=== PATIENT | female | born 1950 | race Caucasian/White ===

== ENCOUNTER → 2018-04-10 | Outpatient (CLI) | payer MEDICARE ==
[~2018-04-10] MED LIST: ASPI-715 PO; ATOR-1 PO; CLOP75TA PO; FEXO1TAB39 PO; LISI-357 PO; METF-411 PO; PNEU0.5D3 IM; SIMV5TAB56 PO
[2018-04-10 15:38] LABS: PLATELET COUNT, AUTOMATED 250 K/uL (150-450)
[2018-04-10 16:23] LABS: LDL CHOLESTEROL 96 mg/dl
== END ==
LOC: LAB 15:15
PROVIDERS: ATTEND Internal Medicine
DX: Z00.00 Encounter for general adult medical examination without abnormal findings (principal); I63.9 Cerebral infarction, unspecified; E11.9 Type 2 diabetes mellitus without complications; I10 Essential (primary) hypertension; E78.5 Hyperlipidemia, unspecified; I67.1 Cerebral aneurysm, nonruptured
CPT/HCPCS: 36415; 81001; 82040; 82043; 82247; 82310; 82374; 82435; 82465; 82565; 82947; 83036; 83718; 84075; 84132; 84155; 84295; 84443; 84450; 84460; 84478; 84520; 85025

== ENCOUNTER → 2018-04-19 | Outpatient (CLI) | payer MEDICARE ==
--- NOTE | 2018-04-19 16:16 | RADIOLOGY IMAGING REPORT ---
FACILITY: PATIENT NAME: Jennifer Kirk : 1950 MR: [id number] V: [id number] EXAM DATE: ORDERING PHYSICIAN: ANDREW DOOLEY TECHNOLOGIST: Location: [facility] - [place] Patient: Jennifer Kirk : 1950 Visit/Account:[id number] Date of Sevice: 04/19/2018 THYROID HISTORY: Thyroid nodules. COMPARISON: CTA of the neck dated 04/20/2017. FINDINGS: SIZE: Normal. Right lobe: 4.6 x 2.6 x 1.6 cm Left lobe: 4.5 x 1.3 x 1.5 cm Isthmus: 3 mm Thyroid heterogeneity: Diffusely heterogeneous. NODULES: Right lobe: * 3 spongiform nodules measuring up to 1.7 x 1.2 x 1.6 cm. Left lobe: * Spongiform nodule measuring 1.8 x 0.9 x 1.9 cm. Isthmus: * No discrete nodules. VASCULARITY: Within normal limits. ADDITIONAL FINDINGS: None. IMPRESSION: Bilateral spongiform nodules measuring less than 2 cm. Biopsy is not recommended. Follow-up thyroid u ltrasound in one year is recommended. REFERENCE: 2015 [place] [employer] Management Guidelines for Adult Patients with Thyroid Nodules and D ifferentiated Thyroid Cancer: The [place] [employer] Guidelines Task Force on Thyroid Nodul es and Differentiated Thyroid Cancer. SONOGRAPHIC PATTERNS: * Benign: Purely cystic nodules (no solid component); estimated risk of malignancy <1 percent; no bi opsy recommended. * Very Low Suspicion: Spongiform or partially cystic nodules without any of the sonographic features described in low, intermediate, or high suspicion patterns; estimated risk of malignancy <3 percent; consider FNA at > 2 cm (Observation without FNA is also a reasonable option). * Low Suspicion: Isoechoic or hyperechoic solid nodule, or partially cystic nodule with eccentric so lid areas, without microcalcification, irregular margin or ETE (extra-thyroidal extension), or taller than wide shape; estimated risk of malignancy 5-10 percent; recommend FNA at >1.5 cm. * Intermediate Suspicion: Hypoechoic solid nodule with smooth margins without microcalcifications, E TE (extra-thyroidal extension), or taller than wide shape; estimated risk of malignancy 10-20 percent ; recommend FNA at > 1 cm. * High Suspicion: Solid hypoechoic nodule or solid hypoechoic component of a partially cystic nodule with one or more of the following features: irregular margins (infiltrative, microlobulated), microc alcifications, taller than wide shape, rim calcifications with small extrusive soft tissue component, evidence of ETE (extra-thyroidal extension); estimated risk of malignancy >70-90 percent; recommend FNA at > 1 cm. NOTES: * Although a sonographically suspicious subcentimeter thyroid nodule without evidence of extrathyroi amandeep extension or sonographically suspicious lymph nodes may be observed with close sonographic follow -up rather than pursuing immediate FNA, patient age and preference may modify decision-making. * A > 50% interval increase in nodule volume and/or development of new suspicious sonographic featur es are felt to be a valid reasons for potential re-aspiration of a nodule previously shown to have be nign FNA cytology. Report Dictated By: Darvin Jernigan MD at 04/19/2018 4:01 PM Report E-Signed By: Darvin Jernigan MD at 04/19/2018 4:11 PM WSN:[id number]
== END ==
LOC: US 02:27
PROVIDERS: ATTEND Internal Medicine
DX: E04.1 Nontoxic single thyroid nodule (principal)
CPT/HCPCS: 76536

== ENCOUNTER 2018-05-17 12:41 | Observation (INO) | payer MEDICARE ==
[~2018-05-17] VITALS: Ht 162.6 cm; Wt 85.7 kg
--- NOTE | 2018-05-17 13:00 | EKG ---
FACILITY: [facility] PATIENT NAME: SEEMA GRANADOS : [id number] MR: [id number] V: [id number] EXAM DATE: ORDERING PHYSICIAN: GEE SCHMID TECHNOLOGIST: Test Reason : STROKE Blood Pressure : / mmHG Vent. Rate : 094 BPM Atrial Rate : 094 BPM P-R Int : 194 ms QRS Dur : 094 ms QT Int : 372 ms P-R-T Axes : 034 117 035 degrees QTc Int : 465 ms Normal sinus rhythm Possible Left atrial enlargement Inferior infarct (cited on or before 17-MAY-2018) Anterolateral infarct (cited on or before 17-MAY-2018) Abnormal ECG When compared with ECG of 20-APR-2017 13:45, No significant change was found Confirmed by JOSE LEE ([id number]) on 05/17/2018 3:20:46 PM Referred By: Confirmed By:JOSE LEE
[2018-05-17 13:02] LABS: PLATELET COUNT, AUTOMATED 309 K/uL (150-450)
[2018-05-17 13:11] LABS: INR 0.89
--- NOTE | 2018-05-17 13:17 | RADIOLOGY IMAGING REPORT ---
FACILITY: [facility] PATIENT NAME: Jennifer Kirk : 1950 MR: [id number] V: [id number] EXAM DATE: ORDERING PHYSICIAN: GEE SCHMID TECHNOLOGIST: Location: [facility] - [place] Patient: Jennifer Kirk : 1950 Visit/Account:[id number] Date of Sevice: 05/17/2018 HEAD W/O CONTRAST Provided history: stroke Additional pertinent history: none TECHNIQUE: Imaging was obtained from the skull base through the vertex without intravenous contrast. Source images were reformatted in the coronal sagittal planes. One of the following dose optimization techniques was utilized in the performance of this exam: Autom ated exposure control; adjustment of the mA and/or kV according to the patient's size; or use of an i terative reconstruction technique. Specific details can be referenced in the facility's radiology CT exam operational policy. Additional imaging: none COMPARISON STUDIES: CT 04/20/17 FINDINGS: Brain volume: Normal Acute cortical ischemia: None Chronic cortical and ganglionic ischemia: There is encephalomalacia in the mid and upper posterior right temporal lobe and lower parietal lobe in the posterior MCA distribution representing old ischem ia, similar to prior examination. Another small focus of posterior left MCA distribution ischemia is also stable. Hemorrhage: None Masses / edema: None White matter: There are scattered white matter hypodensities, non-specific in morphology and distrib ution that are within normal limits for age. Vessels: Normal Extra-axial: None significant Calvarium / scalp: Negative Skull base: negative Visualized sinuses / orbits: negative IMPRESSION: Stable old ischemic zones bilateral MCA distribution. No evidence of acute ischemia, hemorrhage or i ntracranial mass. Report Dictated By: Yasmany Varma MD at 05/17/2018 1:06 PM Report E-Signed By: Yasmany Varma MD at 05/17/2018 1:13 PM WSN:[id number]
--- NOTE | 2018-05-17 13:31 | ER Report ---
History and Physical Time Seen By MD: 12:50 Hx. of Stated Complaint: GENERAL WEAKNESS AND DIFFICULTY SPEAKING SINCE 1110 HPI/ROS CHIEF COMPLAINT: Weakness, possible stroke HISTORY OF PRESENT ILLNESS: 68-year-old female patient presents to emergency room with complaint of weakness and possible stroke. Patient states that she was out checking on the tires on a wheelbarrow which are flat. She states that her walked off to do so feels. She states that she turned to walk away and then froze. States she is unable to move at all. Patient states that her returned and was able to help her to a chair decided it was time to come in and be evaluated. I did stop off at the fire department in the town where they live, [place], and EMS was contacted. Patient states that she has numbness to bilateral feet, weakness to her hands. Patient denies any chest pain, nausea, vomiting or diarrhea. Patient has not taken any medications today. Patient is on Plavix as well as aspirin every day. She is also on a statin for high cholesterol. REVIEW OF SYSTEMS: Respiratory: No cough, no dyspnea. Cardiovascular: No chest pain, no palpitations. Gastrointestinal: No vomiting, no abdominal pain. Musculoskeletal: As noted above Neuro: Patient denies any headache. Allergies: Coded Allergies: Sulfa (Sulfonamide Antibiotics) (Verified Allergy, Mild, 05/10/10) latex (Unverified Allergy, Unknown, Rash, 05/09/17) Uncoded Allergies: TAPE (Allergy, Mild, 05/10/10) Home Meds Active Scripts Clopidogrel Bisulfate (CLOPIDOGREL) 75 Mg Tablet, 1 TAB PO QDAY, #14 TAB Prov:ANDREW DOOLEY MD 05/01/18 Atorvastatin Calcium (ATORVASTATIN CALCIUM) 80 Mg Tablet, 1 TAB PO QDAY, #14 TAB Prov:ANDREW DOOLEY MD 05/01/18 Metformin Hcl (METFORMIN HCL) 500 Mg Tablet, 1 TAB PO BID, #28 TAB Prov:ANDREW DOOLEY MD 05/01/18 Lisinopril (LISINOPRIL) 5 Mg Tablet, 5 MG PO QDAY, #14 TAB Prov:ANDREW DOOLEY MD 05/01/18 Reported Medications Aspirin (Aspirin) 81 Mg Tablet., 81 MG PO DAILY, 0 Refills 05/12/10 Past Medical/Surgical History Patient has a past medical history of TIA, hypertension, CPAP at night, hepatitis, knee fracture, diabetes. Patient has a surgical history of hardware in the right leg, polyp removed. Reviewed Nurses Notes: Yes Smoking Status: Never Smoker Hx Substance Use Disorder: No Hx Alcohol Use: No Constitutional Vital Sign - Last 24 Hours 05/17/18 05/17/18 05/17/18 05/17/18 12:52 13:00 13:15 13:30 Temp 98.7 Pulse 94 89 89 Resp 18 27 20 B/P (MAP) 149/85 134/98 (110) 128/96 (107) 125/76 (92) Pulse Ox 93 94 92 O2 Delivery Room Air 05/17/18 05/17/18 05/17/18 05/17/18 13:50 14:00 14:15 14:30 Pulse 81 77 Resp 9 20 B/P (MAP) 114/68 (83) 113/73 (86) 114/75 (88) 120/64 (82) Pulse Ox 96 94 05/17/18 05/17/18 05/17/18 05/17/18 14:45 15:00 15:15 15:30 Pulse 78 78 Resp 15 15 B/P (MAP) 133/77 (95) 122/79 (93) 111/63 (79) 98/57 (71) Pulse Ox 93 93 05/17/18 05/17/18 15:45 16:00 Pulse 87 Resp 10 B/P (MAP) 110/66 (81) 113/72 (86) Pulse Ox 96 Physical Exam General Appearance: The patient is alert, has no immediate need for airway protection and no current signs of toxicity. Eyes: Pupils equal and round no injection. Extraocular movements intact. Respiratory: Chest is non tender, lungs are clear to auscultation. Cardiac: regular rate and rhythm Gastrointestinal: Abdomen is soft and non tender, no masses, bowel sounds normal. Musculoskeletal: Neck: Neck is supple and non tender. Extremities have full range of motion and are non tender. Patient has weakness to bilateral lower extremities, weakness to arms. Patient is unable to keep her arms up doing the pronator drift bilaterally. Skin: No rashes or lesions. Neuro: Patient is alert and oriented 4, cranial nerves II through XII grossly intact. Patient does have bilateral weakness. Patient had weakness with dorsiflexion and plantar flexion. That did improve while she was being evaluated by neurology. Patient had good sensation bilaterally. DIFFERENTIAL DIAGNOSIS: After history and physical exam differential diagnosis was considered for stroke, TIA, weakness, urinary tract infection. Medical Decision Making Data Points Result Diagram: 05/17/18 1230 05/17/18 1230 Laboratory Hematology Test 05/17/18 12:30 Red Blood Count 4.54 M/uL (4.17-5.56) Mean Corpuscular Volume 86.2 fL (80.0-96.0) Mean Corpuscular Hemoglobin 29.1 pg (26.0-33.0) Mean Corpuscular Hemoglobin Concent 33.8 g/dL (32.0-36.0) Red Cell Distribution Width 15.2 % (11.5-14.5) Mean Platelet Volume 8.9 fL (7.2-11.1) Neutrophils (%) (Auto) 62.9 % (39.4-72.5) Lymphocytes (%) (Auto) 29.8 % (17.6-49.6) Monocytes (%) (Auto) 5.0 % (4.1-12.4) Eosinophils (%) (Auto) 1.8 % (0.4-6.7) Basophils (%) (Auto) 0.5 % (0.3-1.4) Nucleated RBC Relative Count (auto) 0.1 /100WBC Neutrophils # (Auto) 4.2 K/uL (2.0-7.4) Lymphocytes # (Auto) 2.0 K/uL (1.3-3.6) Monocytes # (Auto) 0.3 K/uL (0.3-1.0) Eosinophils # (Auto) 0.1 K/uL (0.0-0.5) Basophils # (Auto) 0.0 K/uL (0.0-0.1) Nucleated RBC Absolute Count (auto) 0.01 K/uL Prothrombin Time 12.1 seconds (12.0-14.4) Prothromb Time International Ratio 0.89 Activated Partial Thromboplast Time 31 seconds (23-35) Sodium Level 141 mmol/L (137-145) Potassium Level 3.9 mmol/L (3.5-5.0) Chloride Level 104 mmol/L (98-107) Carbon Dioxide Level 24 mmol/L (22-31) Blood Urea Nitrogen 17 mg/dl (7-18) Creatinine 0.80 mg/dl (0.52-1.04) Glomerular Filtration Rate Calc > 60.0 Random Glucose 185 mg/dl (75-110) Calcium Level 9.6 mg/dl (8.4-10.2) Total Bilirubin 0.4 mg/dl (0.2-1.3) Aspartate Amino Transf (AST/SGOT) 25 U/L (0-35) Alanine Aminotransferase (ALT/SGPT) 29 U/L (0-56) Alkaline Phosphatase 87 U/L (0-126) Troponin I < 0.012 ng/ml Total Protein 8.0 g/dl (6.3-8.2) Albumin 4.7 g/dl (3.5-5.0) Chemistry Test 05/17/18 12:30 White Blood Count 6.7 k/uL (4.5-11.0) Red Blood Count 4.54 M/uL (4.17-5.56) Hemoglobin 13.2 g/dL (12.0-16.0) Hematocrit 39.1 % (34.0-47.0) Mean Corpuscular Volume 86.2 fL (80.0-96.0) Mean Corpuscular Hemoglobin 29.1 pg (26.0-33.0) Mean Corpuscular Hemoglobin Concent 33.8 g/dL (32.0-36.0) Red Cell Distribution Width 15.2 % (11.5-14.5) Platelet Count 309 K/uL (150-450) Mean Platelet Volume 8.9 fL (7.2-11.1) Neutrophils (%) (Auto) 62.9 % (39.4-72.5) Lymphocytes (%) (Auto) 29.8 % (17.6-49.6) Monocytes (%) (Auto) 5.0 % (4.1-12.4) Eosinophils (%) (Auto) 1.8 % (0.4-6.7) Basophils (%) (Auto) 0.5 % (0.3-1.4) Nucleated RBC Relative Count (auto) 0.1 /100WBC Neutrophils # (Auto) 4.2 K/uL (2.0-7.4) Lymphocytes # (Auto) 2.0 K/uL (1.3-3.6) Monocytes # (Auto) 0.3 K/uL (0.3-1.0) Eosinophils # (Auto) 0.1 K/uL (0.0-0.5) Basophils # (Auto) 0.0 K/uL (0.0-0.1) Nucleated RBC Absolute Count (auto) 0.01 K/uL Prothrombin Time 12.1 seconds (12.0-14.4) Prothromb Time International Ratio 0.89 Activated Partial Thromboplast Time 31 seconds (23-35) Glomerular Filtration Rate Calc > 60.0 Calcium Level 9.6 mg/dl (8.4-10.2) Total Bilirubin 0.4 mg/dl (0.2-1.3) Aspartate Amino Transf (AST/SGOT) 25 U/L (0-35) Alanine Aminotransferase (ALT/SGPT) 29 U/L (0-56) Alkaline Phosphatase 87 U/L (0-126) Troponin I < 0.012 ng/ml Total Protein 8.0 g/dl (6.3-8.2) Albumin 4.7 g/dl (3.5-5.0) Coagulation Test 05/17/18 12:30 Prothrombin Time 12.1 seconds Prothromb Time International Ratio 0.89 Activated Partial Thromboplast Time 31 seconds EKG/Imaging Imaging Single view of the chest Indication: Stroke alert. Comparison: None available Findings: Cardiac silhouette is upper limits of normal, accentuated by the frontal projection. Lungs are clear. There is no focal infiltrate or lobar consolidation. No pneumothorax or pleural effusion. IMPRESSION: 1. No acute cardiopulmonary process. Report Dictated By: Anshul Diamond MD at 05/17/2018 1:42 PM Report E-Signed By: Anshul Diamond MD at 05/17/2018 1:42 PM HEAD W/O CONTRAST Provided history: stroke Additional pertinent history: none TECHNIQUE: Imaging was obtained from the skull base through the vertex without intravenous contrast. Source images were reformatted in the coronal sagittal planes. One of the following dose optimization techniques was utilized in the performance of this exam: Automated exposure control; adjustment of the mA and/or kV according to the patient's size; or use of an iterative reconstruction technique. Specific details can be referenced in the facility's radiology CT exam operational policy. Additional imaging: none COMPARISON STUDIES: CT 04/20/17 FINDINGS: Brain volume: Normal Acute cortical ischemia: None Chronic cortical and ganglionic ischemia: There is encephalomalacia in the mid and upper posterior right temporal lobe and lower parietal lobe in the posterior MCA distribution representing old ischemia, similar to prior examination. Another small focus of posterior left MCA distribution ischemia is also stable. Hemorrhage: None Masses / edema: None White matter: There are scattered white matter hypodensities, non-specific in morphology and distribution that are within normal limits for age. Vessels: Normal Extra-axial: None significant Calvarium / scalp: Negative Skull base: negative Visualized sinuses / orbits: negative IMPRESSION: Stable old ischemic zones bilateral MCA distribution. No evidence of acute ischemia, hemorrhage or intracranial mass. Report Dictated By: Yasmany Varma MD at 05/17/2018 1:06 PM Report E-Signed By: Yasmany Varma MD at 05/17/2018 1:13 PM ED Course/Re-evaluation ED Course Patient was admitted to an exam room, history of physical were obtained. Differential diagnoses were considered. On mission to the emergency room patient was taken for CAT scan. And then was taken in the room. A full neuro exam was done. Patient had weakness to her bilateral lower extremities, as well as her upper extremities. A CBC, CMP, coag studies were done. The lab results were unremarkable. Telestroke was initiated, the patient was evaluated by a neurologist, Dr. Conti. Neurologist did not feel that the patient needed to have TPA at this time. She recommended a CTA of the head and neck. That was done and they found no acute abnormalities. After the CTA patient was feeling better, she had increased strength and movement in her arms and legs. She was talking better. I discussed the findings with her. I then spoke with Dr. Agosto, neurology resident at [facility] in [place], I discussed with him that my plan was to go ahead and have the patient admitted and we would monitor her overnight. He felt that was a reasonable plan. I spoke with Dr. Spivey, hospitalist, who agreed to accept the patient for admission. I discussed this with the patient and her family and they verbalized understanding and agreement with plan. Decision to Disposition Date: May 17, 2018 Decision to Disposition Time: 16:11 Depart Departure Latest Vital Signs Vital Signs Date Time Temp Pulse Resp B/P (MAP) Pulse Ox O2 Delivery O2 Flow Rate FiO2 05/17/18 16:00 87 10 113/72 (86) 96 05/17/18 12:52 98.7 Room Air Impression: Primary Impression: TIA (transient ischemic attack) Condition: Improved Disposition: Admitted from ER Referrals: ANDREW DOOLEY MD (PCP) DOUGIE BOWER May 17, 2018 13:31
[2018-05-17] MEDS ORDERED: NS(*) 0.9% 50 ML BAG 50 ML ONE (13:41)
[2018-05-17] MEDS ORDERED: IOPAMIDOL 76% 75 ML INFUS BTL 75 ML ONE (13:41)
--- NOTE | 2018-05-17 13:47 | RADIOLOGY IMAGING REPORT ---
FACILITY: [facility] PATIENT NAME: Jennifer Kirk : 1950 MR: [id number] V: [id number] EXAM DATE: ORDERING PHYSICIAN: ANSHUL SCHMID TECHNOLOGIST: Location: Patient: Jennifer Kirk : 1950 Visit/Account:[id number] Date of Sevice: 05/17/2018 Single view of the chest Indication: Stroke alert. Comparison: None available Findings: Cardiac silhouette is upper limits of normal, accentuated by the frontal projection. Lungs are clear . There is no focal infiltrate or lobar consolidation. No pneumothorax or pleural effusion. IMPRESSION: 1. No acute cardiopulmonary process. Report Dictated By: Anshul Diamond MD at 05/17/2018 1:42 PM Report E-Signed By: Anshul Diamond MD at 05/17/2018 1:42 PM WSN:[id number]
--- NOTE | 2018-05-17 14:30 | RADIOLOGY IMAGING REPORT ---
FACILITY: [facility] - [place] PATIENT NAME: Jennifer Kirk : 1950 MR: [id number] V: [id number] EXAM DATE: ORDERING PHYSICIAN: DOUGIE BOWER TECHNOLOGIST: Location: [facility] [place] Patient: Jennifer Kirk : 1950 Visit/Account:[id number] Date of Sevice: 05/17/2018 ADDENDUM #1 Addendum: There is an error in the impression. IMPRESSION 1 should read "Unchanged 2.3 mm saccular an eurysm at the right M1 bifurcation." Report content is otherwise unchanged. Dr. Manrique reviewed this change with the patient's care provider. Report Dictated By: Abrahan Archer MD at 05/18/2018 2:16 PM Report E-Signed By: Abrahan Archer MD at 05/18/2018 2:19 PM ORIGINAL REPORT Examination: CTA of the head and neck Comparison: Noncontrast head CT earlier the same day. CTA 04/20/2017. History: weakness Procedure: Arterial phase imaging of the head and neck with 75 mL intravenous Isovue 370. Reconstruct ion of the source data set includes multiplanar 2D in the sagittal and coronal planes, and 3D reconst ructed coronal slab MIP series. Percent stenosis is based on NASCET criteria. One of the following dose optimization techniques was utilized in the performance of this exam: Autom ated exposure control; adjustment of the mA and/or kV according to the patient's size; or use of an i terative reconstruction technique. Specific details can be referenced in the facility's radiology C T exam operational policy. Findings: Aortic arch: Minimal atherosclerosis. Arch vessel origins are widely patent. Right extracranial carotid system: Negative. Left extracranial carotid system: Negative. Vertebral arteries: Negative. Intracranial internal carotid arteries: Minimal atherosclerosis. No occlusion or stenosis. Anterior cerebral arteries: Negative. Anterior communicating artery is present. Middle cerebral arteries: 2.3 mm saccular aneurysm at the right M1 bifurcation is unchanged. No acute findings. Vertebrobasilar system and posterior cerebral arteries: origin left posterior cerebral artery. Otherwise negative. Dural venous sinuses: Limited evaluation of venous sinuses due to the arterial phase of enhancement. Brain: No mass effect or midline shift. More fully characterized on the earlier noncontrast head CT. Cervical spine: No vertebral body height loss or malalignment. Mild to moderate degenerative disc dis ease at C3-C4, C5-C6, and C6-C7. No definite spinal canal narrowing is identified although there is m ild to moderate multilevel foraminal narrowing. Paranasal sinus and orbits: No acute changes. Multiple periapical erosions as before. Bilateral TMJ o steoarthritis. Prevertebral soft tissues: No acute findings. Multinodular thyroid as before. Visualized airway and lung apices: Clear. IMPRESSION: 1. Unchanged 2.3 cm saccular aneurysm at the right M1 bifurcation. 2. No evidence of acute arterial pathology in the head or neck. 3. Cervical spine multilevel degenerative change. 4. Multinodular thyroid is better characterized on the thyroid ultrasound from 04/19/2018. 5. 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 Results were discussed with DOUGIE BOWER at 05/17/2018 2:25 PM. Report Dictated By: Abrahan Archer MD at 05/17/2018 2:08 PM Report E-Signed By: Abrahan Archer MD at 05/17/2018 2:26 PM [id number]
--- NOTE | 2018-05-17 14:31 | RADIOLOGY IMAGING REPORT ---
FACILITY: [facility] - [place] PATIENT NAME: Jennifer Kirk : 1950 MR: [id number] V: [id number] EXAM DATE: ORDERING PHYSICIAN: DOUGIE BOWER TECHNOLOGIST: Location: [facility] [place] Patient: Jennifer Kirk : 1950 Visit/Account:[id number] Date of Sevice: 05/17/2018 ADDENDUM #1 Addendum: There is an error in the impression. IMPRESSION 1 should read "Unchanged 2.3 mm saccular an eurysm at the right M1 bifurcation." Report content is otherwise unchanged. Dr. Manrique reviewed this change with the patient's care provider. Report Dictated By: Abrahan Archer MD at 05/18/2018 2:16 PM Report E-Signed By: Abrahan Archer MD at 05/18/2018 2:19 PM ORIGINAL REPORT Examination: CTA of the head and neck Comparison: Noncontrast head CT earlier the same day. CTA 04/20/2017. History: weakness Procedure: Arterial phase imaging of the head and neck with 75 mL intravenous Isovue 370. Reconstruct ion of the source data set includes multiplanar 2D in the sagittal and coronal planes, and 3D reconst ructed coronal slab MIP series. Percent stenosis is based on NASCET criteria. One of the following dose optimization techniques was utilized in the performance of this exam: Autom ated exposure control; adjustment of the mA and/or kV according to the patient's size; or use of an i terative reconstruction technique. Specific details can be referenced in the facility's radiology C T exam operational policy. Findings: Aortic arch: Minimal atherosclerosis. Arch vessel origins are widely patent. Right extracranial carotid system: Negative. Left extracranial carotid system: Negative. Vertebral arteries: Negative. Intracranial internal carotid arteries: Minimal atherosclerosis. No occlusion or stenosis. Anterior cerebral arteries: Negative. Anterior communicating artery is present. Middle cerebral arteries: 2.3 mm saccular aneurysm at the right M1 bifurcation is unchanged. No acute findings. Vertebrobasilar system and posterior cerebral arteries: origin left posterior cerebral artery. Otherwise negative. Dural venous sinuses: Limited evaluation of venous sinuses due to the arterial phase of enhancement. Brain: No mass effect or midline shift. More fully characterized on the earlier noncontrast head CT. Cervical spine: No vertebral body height loss or malalignment. Mild to moderate degenerative disc dis ease at C3-C4, C5-C6, and C6-C7. No definite spinal canal narrowing is identified although there is m ild to moderate multilevel foraminal narrowing. Paranasal sinus and orbits: No acute changes. Multiple periapical erosions as before. Bilateral TMJ o steoarthritis. Prevertebral soft tissues: No acute findings. Multinodular thyroid as before. Visualized airway and lung apices: Clear. IMPRESSION: 1. Unchanged 2.3 cm saccular aneurysm at the right M1 bifurcation. 2. No evidence of acute arterial pathology in the head or neck. 3. Cervical spine multilevel degenerative change. 4. Multinodular thyroid is better characterized on the thyroid ultrasound from 04/19/2018. 5. 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 Results were discussed with DOUGIE BOWER at 05/17/2018 2:25 PM. Report Dictated By: Abrahan Archer MD at 05/17/2018 2:08 PM Report E-Signed By: Abrahan Archer MD at 05/17/2018 2:26 PM WSN:[id number]
[2018-05-17 17:23] VITALS: BP 119/81
[2018-05-17] MEDS ORDERED: INFLUENZA VIRUS VAC 0.5 ML SYR IM ONLY ONE (17:40)
[2018-05-17] MEDS ORDERED: INSULIN HUM LISPRO 100 UN/ML 3 ML VIAL SUBQ PRN (18:00)
--- NOTE | 2018-05-17 18:10 | History & Physical ---
History of Present Illness Chief Complaint Inability to move History of Present Illness This patient presented to the emergency room complaining of being unable to move any part of her body. The incident occurred this [place] She reports the sudden onset of being unable to snow remover any of her extremities, but she was able to verbally ask her for help. She and her family deny any unilateral involvement. She reports a feeling of numbness across her entire body. The symptoms resolved after several hours when she was in the emergency department. History Problems: (1) TIA (transient ischemic attack) Status: Chronic (2) Benign hypertension (3) Diabetes mellitus (4) Hyperlipidemia (5) Thyroid nodule (6) Saccular aneurysm Status: Chronic Home Meds Active Scripts Clopidogrel Bisulfate (CLOPIDOGREL) 75 Mg Tablet, 1 TAB PO QDAY, #14 TAB Prov:ANDREW DOOLEY MD 05/01/18 Atorvastatin Calcium (ATORVASTATIN CALCIUM) 80 Mg Tablet, 1 TAB PO QDAY, #14 TAB Prov:ANDREW DOOLEY MD 05/01/18 Metformin Hcl (METFORMIN HCL) 500 Mg Tablet, 1 TAB PO BID, #28 TAB Prov:ANDREW DOOLEY MD 05/01/18 Lisinopril (LISINOPRIL) 5 Mg Tablet, 5 MG PO QDAY, #14 TAB Prov:ANDREW DOOLEY MD 05/01/18 Reported Medications Aspirin (Aspirin) 81 Mg Tablet.dr, 81 MG PO DAILY, 0 Refills 05/12/10 Allergies: Coded Allergies: Sulfa (Sulfonamide Antibiotics) (Verified Allergy, Mild, 05/10/10) latex (Unverified Allergy, Unknown, Rash, 05/09/17) Uncoded Allergies: TAPE (Allergy, Mild, 05/10/10) Patient History: FH: pancreatic cancer FATHER, Smoking Status: Never Smoker Hx Alcohol Use: No Hx Substance Use Disorder: No Social Drug Use: Never Review of Systems All Systems Reviewed/Normal: Yes, Except as Noted Neurological: Weakness Exam Vital Signs Vital Signs Date Time Temp Pulse Resp B/P (MAP) Pulse Ox O2 Delivery O2 Flow Rate FiO2 05/17/18 17:42 95 Room Air 05/17/18 17:23 97.8 79 16 119/81 (94) Neuro: No Gross deficits Eyes: PERRLA Cardiovascular: Regular Rate and Rhythm Respiratory: Clear to Auscultation GI: Abd Soft and Non-Tender Extremities: No Edema Integumentary: No Cyanosis Medical Decision Making Data Points Result Diagram: 05/17/18 1230 05/17/18 1230 EKG / Imaging Imaging CT of head and neck reviewed. Assessment and Plan Problems: (1) TIA (transient ischemic attack) Status: Chronic Assessment & Plan: She presented with an inability to move any of her extremities, but her does report that she was able to grab onto the truck with her right hand. Her CT scan shows only an old stroke and unchanged saccular aneurysm. Her symptoms have now completely resolved. The CT angiogram of her head and neck vessels was unremarkable other than the aneurysm. An echocardiogram and therapy evaluations have been ordered. (2) DM2 (diabetes mellitus, type 2) Assessment & Plan: She is on chronic treatment with metformin, which will need to remain on hold secondary to contrast administration. She has been placed on sliding scale level #2. (3) Benign hypertension Assessment & Plan: She is on chronic treatment with lisinopril. Copies to: ANDREW DOOLEY MD ; Venous Thromboembolism Antithrombotics Is Pt On Any Antithrombotics?: No Exam Sepsis Risk: No Definite Risk JOSE LEE DO May 17, 2018 18:10
[2018-05-17 18:41] VITALS: BP 119/60
[2018-05-18 05:36] LABS: PLATELET COUNT, AUTOMATED 265 K/uL (150-450)
[2018-05-18 07:08] VITALS: BP 126/60
[2018-05-18 08:27] VITALS: Ht 162.6 cm; Wt 85.7 kg
[2018-05-18] MEDS ORDERED: ASPIRIN 81 MG ENTERIC COATED PO SCH (09:00)
[2018-05-18] MEDS ORDERED: LISINOPRIL 5 MG TAB PO SCH (09:00)
[2018-05-18] MEDS ORDERED: CLOPIDOGREL BISULFATE 75MG TAB PO SCH (09:00)
[2018-05-18] MEDS ORDERED: ATORVASTATIN 40 MG TAB PO SCH (09:00)
--- NOTE | 2018-05-18 11:10 | Hospitalist Depart ---
Discharge Summary Reason for Hosp/Final Diag: (1) TIA (transient ischemic attack) Status: Chronic Hospital Course & Plan: She presented with an inability to move any of her extremities, but her does report that she was able to grab onto the truck with her right hand. Her CT scan shows only an old stroke and unchanged saccular aneurysm. Her symptoms have now completely resolved. The CT angiogram of her head and neck vessels was unremarkable other than the aneurysm. An echocardiogram was completed pending read. Suspect this more conversion disorder or related than TIA given unusual presentation. (2) DM2 (diabetes mellitus, type 2) Hospital Course & Plan: She is on chronic treatment with metformin. (3) Benign hypertension Hospital Course & Plan: She is on chronic treatment with lisinopril. Departure Weight (Pounds): 189 Result Diagram: 05/18/1852405/18/18524 Condition: Improved Discharge: Home Discharge Instructions Home Meds Active Scripts Clopidogrel Bisulfate (CLOPIDOGREL) 75 Mg Tablet, 1 TAB PO QDAY, #14 TAB Prov:ANDREW DOOLEY MD 05/01/18 Atorvastatin Calcium (ATORVASTATIN CALCIUM) 80 Mg Tablet, 1 TAB PO QDAY, #14 TAB Prov:ANDREW DOOLEY MD 05/01/18 Metformin Hcl (METFORMIN HCL) 500 Mg Tablet, 1 TAB PO BID, #28 TAB Prov:ANDREW DOOLEY MD 05/01/18 Lisinopril (LISINOPRIL) 5 Mg Tablet, 5 MG PO QDAY, #14 TAB Prov:ANDREW DOOLEY MD 05/01/18 Reported Medications Aspirin (Aspirin) 81 Mg Tablet., 81 MG PO DAILY, 0 Refills 05/12/10 Diet: Diabetic Activity: As Tolerated Venous Thromboembolism Antithrombotics Is Pt On Any Antithrombotics?: No CLARISSA LAU DO May 18, 2018 11:10
[2018-05-18] MEDS ORDERED: CLOP75TA PO (14:49)
[2018-05-18] MEDS ORDERED: METF-411 PO (14:49)
[2018-05-18] MEDS ORDERED: LISI5TAB25 PO (14:49)
[2018-05-18] MEDS ORDERED: ATOR-1 PO (14:49)
[2018-05-22] MEDS ORDERED: CLOP75TA PO (15:15)
[2018-05-22] MEDS ORDERED: METF-411 PO (15:15)
[2018-05-22] MEDS ORDERED: ATOR-1 PO (15:15)
[2018-05-22] MEDS ORDERED: LISI5TAB25 PO (15:15)
== END 2018-05-18 11:07 | disposition home or self-care (01) ==
LOC: ER 12:56 → MED 16:13 → INTOOBSV 16:13
PROVIDERS: ADMIT Family Medicine; ATTEND Family Medicine
DX: G45.9 Transient cerebral ischemic attack, unspecified (principal); I10 Essential (primary) hypertension; E11.9 Type 2 diabetes mellitus without complications
CPT/HCPCS: 36415; 36416; 70450; 70496; 70498; 71045; 82948; 84484; 85025; 85610; 85730; 93005; 93306; 99284; A9270; G0378; J7050; Q9967; 82040; 82247; 82310; 82374; 82435; 82565; 82947; 84075; 84132; 84155; 84295; 84450; 84460; 84520

== ENCOUNTER → 2018-05-17 | Outpatient (CLI) | payer MEDICARE ==
[~2018-05-17] MED LIST changes: +LISI5TAB25 PO
[2018-05-18 08:27] VITALS: BMI 32.4
== END ==
LOC: AMB 12:15
PROVIDERS: ATTEND Nurse Practitioner
DX: R53.1 Weakness (principal); R13.0 Aphagia; R29.810 Facial weakness
CPT/HCPCS: A0425; A0427

== ENCOUNTER → 2018-06-16 | Outpatient (CLI) | payer MEDICARE ==
[2018-05-18 08:27] VITALS: BMI 32.4
[~2018-06-16] MED LIST changes: -METF-411 PO; +METF-450 PO
[2018-06-16 10:04] LABS: LDL CHOLESTEROL 75 mg/dl
== END ==
LOC: US 04:22
PROVIDERS: ATTEND Internal Medicine Cardiovascular Disease
DX: I34.0 Nonrheumatic mitral (valve) insufficiency (principal); I35.1 Nonrheumatic aortic (valve) insufficiency
CPT/HCPCS: 36415; 82040; 82247; 82310; 82374; 82435; 82465; 82565; 82947; 83718; 84075; 84132; 84155; 84295; 84450; 84460; 84478; 84520; 85027; 86140; 93017; 93350

== ENCOUNTER 2018-08-09 18:34 | Emergency (ER) | payer MEDICARE ==
[2018-05-18 08:27] VITALS: Wt 85.3 kg
[~2018-08-09 18:34] MED LIST changes: -APIX5TAB PO; -METF-452 PO; -WARF5TAB23 PO
--- NOTE | 2018-08-09 18:42 | ER Report ---
History and Physical Time Seen By MD: 18:37 HPI/ROS CHIEF COMPLAINT: left arm weakness and numbness HISTORY OF PRESENT ILLNESS: This is a 68 year old female. She had sudden onset of left arm numbness and weakness, as well as some numbness and weakness of the left side of her face and aphasia. This was at 1730 hours. 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 Was feeling normal prior, no recent illness. She has no headache, vision changes, but does have a little dizziness. No trouble with speech or swallow at this time. No fevers or chills. No chest pain or shortness of breath. She has had prior CVA in the past and TIAs. The pattern today is different than past TIAs. She takes aspirin, Plavix, lisinopril, atorvastatin, and metformin. No smoking, alcohol, or drug use. REVIEW OF SYSTEMS: Constitutional: No fever or chills. Eyes: No vision changes. ENT: No sore throat. No congestion. Cardiovascular: No chest pain. No palpitations. Respiratory: No cough. No shortness of breath. Gastrointestinal: No abdominal pain. No nausea or vomiting. No constipation or diarrhea. Genitourinary: No dysuria. No frequency Musculoskeletal: No back pain. No extremity pain. Skin: No rashes. No bruising. Neurological: As above. Allergies: Coded Allergies: Sulfa (Sulfonamide Antibiotics) (Verified Allergy, Mild, 05/10/10) latex (Unverified Allergy, Unknown, Rash, 05/09/17) Uncoded Allergies: TAPE (Allergy, Mild, 05/10/10) Home Meds Active Scripts Clopidogrel Bisulfate (CLOPIDOGREL) 75 Mg Tablet, 1 TAB PO QDAY, #90 TAB 3 Refills Prov:ANDREW DOOLEY MD 06/02/18 Atorvastatin Calcium (ATORVASTATIN CALCIUM) 80 Mg Tablet, 1 TAB PO QDAY, #90 TAB 3 Refills Prov:ANDREW DOOLEY MD 06/02/18 Lisinopril (LISINOPRIL) 5 Mg Tablet, 5 MG PO QDAY, #90 TAB 3 Refills Prov:ANDREW DOOLEY MD 06/02/18 Reported Medications Metformin Hcl (METFORMIN HCL) 1,000 Mg Tablet, 1 TAB PO QDAY, TAB 08/09/18 Aspirin (Aspirin) 81 Mg Tablet.dr, 81 MG PO DAILY, 0 Refills 05/12/10 Discontinued Scripts Metformin Hcl (METFORMIN HCL) 500 Mg Tablet, 1 TAB PO DIRECTED, #270 TAB 3 Refills 2 in am and 1 in pm Prov:ANDREW DOOLEY MD 06/02/18 Past Medical/Surgical History See above. Hypertension, nbq-kacqacg-yathhypld diabetes, hypothyroidism, sleep apnea, heart failure Reviewed Nurses Notes: Yes Smoking Status: Never Smoker Hx Substance Use Disorder: No Hx Alcohol Use: No Constitutional Vital Sign - Last 24 Hours 08/09/18 08/09/18 08/09/18 08/09/18 18:45 18:47 19:00 19:04 Temp 97.7 Pulse 105 101 Resp 16 12 B/P (MAP) 144/75 (98) 144/75 149/90 (109) Pulse Ox 96 96 O2 Delivery Room Air 08/09/18 08/09/18 08/09/18 08/09/18 19:34 19:54 20:00 20:04 Pulse 101 99 Resp 23 24 B/P (MAP) 154/82 (106) 144/111 (122) Pulse Ox 93 94 08/09/18 08/09/18 08/09/18 08/09/18 20:15 20:20 20:47 20:50 Pulse 100 99 Resp 31 11 B/P (MAP) 140/91 (107) 138/85 (102) Pulse Ox 92 92 08/09/18 08/09/18 08/09/18 08/09/18 21:00 21:05 21:10 21:15 Pulse 98 104 Resp 16 17 B/P (MAP) 145/79 (101) 136/104 (115) Pulse Ox 95 95 Intake and Output 08/09/18 08/09/18 08/10/18 15:00 23:00 07:00 Intake Total 76.5 ml Balance 76.5 ml Physical Exam General Appearance: The patient is alert. No acute distress. Eyes: Pupils are equal, round. Reactive to light. No pallor, injection or icterus. Extraocular movements are intact. No nystagmus. Normal visual seaman by direct confrontation. ENT: Mucous membranes are moist. Normal oral mucosa. Posterior oropharynx is normal. Normal tympanic membranes and canals. Neck: Supple and non tender. No lymphadenopathy. Respiratory: Lungs are clear to auscultation. Cardiovascular: Regular rate and rhythm. No murmurs, gallops or rubs. Normal capillary refill. No edema. Gastrointestinal: Abdomen is soft and non tender. Nondistended. Normal active bowel sounds. Neurological: Alert and oriented x3. Cranial nerves with eye exam as noted above. Midline tongue, symmetric palate elevation, no facial weakness or numbness. Total paralysis of the left arm, total numbness of the left arm. No other deficits of the extremities. Skin: Warm and dry. No rashes. Musculoskeletal: Extremities are nontender. No tenderness in palpation of the cervical, thoracic and lumbar spine. DIFFERENTIAL DIAGNOSIS: After history and physical exam, differential diagnosis was considered for acute stroke Medical Decision Making Data Points Result Diagram: 08/09/187 08/09/187 Laboratory Hematology Test 08/09/18 18:47 Red Blood Count 4.73 M/uL (4.17-5.56) Mean Corpuscular Volume 86.4 fL (80.0-96.0) Mean Corpuscular Hemoglobin 29.0 pg (26.0-33.0) Mean Corpuscular Hemoglobin Concent 33.6 g/dL (32.0-36.0) Red Cell Distribution Width 15.4 % (11.5-14.5) Mean Platelet Volume 9.1 fL (7.2-11.1) Neutrophils (%) (Auto) 67.4 % (39.4-72.5) Lymphocytes (%) (Auto) 26.0 % (17.6-49.6) Monocytes (%) (Auto) 4.2 % (4.1-12.4) Eosinophils (%) (Auto) 2.0 % (0.4-6.7) Basophils (%) (Auto) 0.4 % (0.3-1.4) Nucleated RBC Relative Count (auto) 0.1 /100WBC Neutrophils # (Auto) 5.9 K/uL (2.0-7.4) Lymphocytes # (Auto) 2.3 K/uL (1.3-3.6) Monocytes # (Auto) 0.4 K/uL (0.3-1.0) Eosinophils # (Auto) 0.2 K/uL (0.0-0.5) Basophils # (Auto) 0.0 K/uL (0.0-0.1) Nucleated RBC Absolute Count (auto) 0.01 K/uL Prothrombin Time 12.1 seconds (12.0-14.4) Prothromb Time International Ratio 0.89 Activated Partial Thromboplast Time 32 seconds (23-35) Sodium Level 141 mmol/L (137-145) Potassium Level 3.7 mmol/L (3.5-5.0) Chloride Level 107 mmol/L (98-107) Carbon Dioxide Level 24 mmol/L (22-31) Blood Urea Nitrogen 20 mg/dl (7-18) Creatinine 0.90 mg/dl (0.52-1.04) Glomerular Filtration Rate Calc > 60.0 Random Glucose 144 mg/dl (75-110) Calcium Level 9.6 mg/dl (8.4-10.2) Total Bilirubin 0.3 mg/dl (0.2-1.3) Aspartate Amino Transf (AST/SGOT) 37 U/L (0-35) Alanine Aminotransferase (ALT/SGPT) 38 U/L (0-56) Alkaline Phosphatase 90 U/L (0-126) Troponin I < 0.012 ng/ml Total Protein 8.1 g/dl (6.3-8.2) Albumin 4.5 g/dl (3.5-5.0) Chemistry Test 08/09/18 18:47 White Blood Count 8.7 k/uL (4.5-11.0) Red Blood Count 4.73 M/uL (4.17-5.56) Hemoglobin 13.7 g/dL (12.0-16.0) Hematocrit 40.8 % (34.0-47.0) Mean Corpuscular Volume 86.4 fL (80.0-96.0) Mean Corpuscular Hemoglobin 29.0 pg (26.0-33.0) Mean Corpuscular Hemoglobin Concent 33.6 g/dL (32.0-36.0) Red Cell Distribution Width 15.4 % (11.5-14.5) Platelet Count 287 K/uL (150-450) Mean Platelet Volume 9.1 fL (7.2-11.1) Neutrophils (%) (Auto) 67.4 % (39.4-72.5) Lymphocytes (%) (Auto) 26.0 % (17.6-49.6) Monocytes (%) (Auto) 4.2 % (4.1-12.4) Eosinophils (%) (Auto) 2.0 % (0.4-6.7) Basophils (%) (Auto) 0.4 % (0.3-1.4) Nucleated RBC Relative Count (auto) 0.1 /100WBC Neutrophils # (Auto) 5.9 K/uL (2.0-7.4) Lymphocytes # (Auto) 2.3 K/uL (1.3-3.6) Monocytes # (Auto) 0.4 K/uL (0.3-1.0) Eosinophils # (Auto) 0.2 K/uL (0.0-0.5) Basophils # (Auto) 0.0 K/uL (0.0-0.1) Nucleated RBC Absolute Count (auto) 0.01 K/uL Prothrombin Time 12.1 seconds (12.0-14.4) Prothromb Time International Ratio 0.89 Activated Partial Thromboplast Time 32 seconds (23-35) Glomerular Filtration Rate Calc > 60.0 Calcium Level 9.6 mg/dl (8.4-10.2) Total Bilirubin 0.3 mg/dl (0.2-1.3) Aspartate Amino Transf (AST/SGOT) 37 U/L (0-35) Alanine Aminotransferase (ALT/SGPT) 38 U/L (0-56) Alkaline Phosphatase 90 U/L (0-126) Troponin I < 0.012 ng/ml Total Protein 8.1 g/dl (6.3-8.2) Albumin 4.5 g/dl (3.5-5.0) Coagulation Test 08/09/18 18:47 Prothrombin Time 12.1 seconds Prothromb Time International Ratio 0.89 Activated Partial Thromboplast Time 32 seconds EKG/Imaging EKG Interpretation 12 lead EKG: Rhythm: Sinus tachycardia with first-degree AV block [place]: normal QRS: Left anterior fascicular block, left atrial enlargement ST segments: No ST elevation or depression noted at this time, no signs of ischemia Imaging EXAMINATION: CT head without IV contrast HISTORY: Possible stroke. Left arm weakness. COMPARISON: CT head and CTA head and neck from 05/17/2018. TECHNIQUE: Contiguous axial images were obtained from the skull base to the vertex without intravenous contrast. Sagittal and coronal reformatted images are also submitted. One of the following dose optimization techniques was utilized in the performance of this exam: Automated exposure control; adjustment of the mA and/or kV according to the patient's size; or use of an iterative reconstruction technique. Specific details can be referenced in the facility's radiology CT exam operational policy. FINDINGS: Brain volume: Mild generalized atrophy with associated concordant prominence of the ventricular system. Ventricles: Normal. Acute ischemic changes: There is no loss of stewart-white differentiation to suggest acute ischemia. Hemorrhage: No acute intracranial hemorrhage. Masses/edema: None. Stewart-white: Small hypodensity in the right cerebellum, small area of gliosis and cortical thinning in the left temporal occipital region and moderate area of encephalomalacia and cortical thinning in the right temporoparietal region are unchanged. White matter: Normal. Vessels: Calcified plaque of both carotid siphons. Extra-axial: Negative. Calvarium/scalp: Mild hyperostosis frontalis interna. Skull base/visualized face: Negative. Visualized sinuses/orbits: Mild mucosal thickening in the bilateral ethmoid air cells. There are bilateral uncomplicated aldair bullosa in the nasal cavity. Mild nasal septal deviation to the left. IMPRESSION: 1. No acute hemorrhage or intracranial mass lesion. No CT evidence of acute infarct. 2. Chronic infarcts in the bilateral MCA distribution, right greater than left, and small chronic right cerebellar infarct, unchanged. These findings were discussed with DENIZ HANEY at 08/09/2018 6:56 PM. Report Dictated By: Heather Manrique MD at 08/09/2018 6:53 PM ED Course/Re-evaluation Clinical Indication for ER IV: Hydration, IV Access ED Course Stroke alert called. Blood sugar normal. Head CT scan, non-contrast, without acute bleed. NIH stroke scale done, score of 5 (3 points for arm total weakness, and 2 points for no sensation in the arm). IV started and labs obtained. Tele- stroke consult with Dr. Conti, neurology at [facility]. After our evaluation, and reviewing risks and benefits of thrombolytics with the patient, the patient gave consent and we gave the thrombolytics. Called and spoke with Dr. Hanson, neurology at [facility] who accepted the patient. No large vessel occlusion s on CTA of the head and neck. Thrombolytics given, mild improvement of numbness, but no change in weakness. No change in vital signs and no signs of adverse effect. She is a little anxious about the transfer, so she was given Ativan 0.5mg IV. Decision to Disposition Date: Aug 09, 2018 Decision to Disposition Time: 20:39 Transfer Facility Patient was transferred to [facility] via helicopter. The transfer was emergent, and was required because the capabilities of the receiving hospital. Consent for transfer was obtained from the patient and her . See EMTALA for transfer orders. Depart Departure Latest Vital Signs Vital Signs Date Time Temp Pulse Resp B/P (MAP) Pulse Ox O2 Delivery O2 Flow Rate FiO2 08/09/18 21:15 136/104 (115) 08/09/18 21:10 104 17 95 08/09/18 18:47 97.7 Room Air Impression: Primary Impression: CVA (cerebral vascular accident) Condition: Condition Unchanged Disposition: XFER TO [facility]UTE [facility]ARE [facility]OSP[facility] Referrals: ANDREW DOOLEY MD (PCP) Problem Qualifiers Primary Impression: CVA (cerebral vascular accident) CVA mechanism: unspecified Qualified Codes: I63.9 - Cerebral infarction, unspecified DENIZ HANEY MD Aug 09, 2018 18:42
[2018-08-09] MEDS ORDERED: METF-452 PO (19:02)
--- NOTE | 2018-08-09 19:03 | RADIOLOGY IMAGING REPORT ---
FACILITY: [facility] PATIENT NAME: Jennifer Kirk : 1950 MR: [id number] V: [id number] EXAM DATE: ORDERING PHYSICIAN: DENIZ HANEY TECHNOLOGIST: Location: [facility] Patient: Jennifer Kirk : 1950 Visit/Account:[id number] Date of Sevice: 08/09/2018 ADDENDUM #1 Addendum: In retrospect there is a mildly hyperdense, partly calcified extra-axial mass in the right posterior fossa, posterior to the internal auditory canal, measuring 1.2 cm in greatest dimension. N o edema in the adjacent brain. 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 Report Dictated By: Heather Manrique MD at 08/09/2018 9:20 PM Report E-Signed By: Heather Manrique MD at 08/09/2018 9:22 PM ORIGINAL REPORT EXAMINATION: CT head without IV contrast HISTORY: Possible stroke. Left arm weakness. COMPARISON: CT head and CTA head and neck from 05/17/2018. TECHNIQUE: Contiguous axial images were obtained from the skull base to the vertex without intraven ous contrast. Sagittal and coronal reformatted images are also submitted. One of the following dose optimization techniques was utilized in the performance of this exam: Autom ated exposure control; adjustment of the mA and/or kV according to the patient's size; or use of an i terative reconstruction technique. Specific details can be referenced in the facility's radiology C T exam operational policy. FINDINGS: Brain volume: Mild generalized atrophy with associated concordant prominence of the ventricular syst em. Ventricles: Normal. Acute ischemic changes: There is no loss of stewart-white differentiation to suggest acute ischemia. Hemorrhage: No acute intracranial hemorrhage. Masses/edema: None. Stewart-white: Small hypodensity in the right cerebellum, small area of gliosis and cortical thinning in the left temporal occipital region and moderate area of encephalomalacia and cortical thinning in th e right temporoparietal region are unchanged. White matter: Normal. Vessels: Calcified plaque of both carotid siphons. Extra-axial: Negative. Calvarium/scalp: Mild hyperostosis frontalis interna. Skull base/visualized face: Negative. Visualized sinuses/orbits: Mild mucosal thickening in the bilateral ethmoid air cells. There are bi lateral uncomplicated aldair bullosa in the nasal cavity. Mild nasal septal deviation to the left. IMPRESSION: 1. No acute hemorrhage or intracranial mass lesion. No CT evidence of acute infarct. 2. Chronic infarcts in the bilateral MCA distribution, right greater than left, and small chronic ri ght cerebellar infarct, unchanged. These findings were discussed with DENIZ HANEY at 08/09/2018 6:56 PM. Report Dictated By: Heather Manrique MD at 08/09/2018 6:53 PM Report E-Signed By: Heather Manrique MD at 08/09/2018 6:59 PM WSN:[id number]
[2018-08-09] MEDS ORDERED: ALTEPLASE RECOMB 100 MG/100 ML VIAL IV ONE (19:50)
[2018-08-09 19:57] LABS: PLATELET COUNT, AUTOMATED 287 K/uL (150-450)
[2018-08-09 20:07] LABS: INR 0.89
[2018-08-09] MEDS ORDERED: IOPAMIDOL 76% 75 ML INFUS BTL 75 ML ONE (20:12)
[2018-08-09] MEDS ORDERED: NS(*) 0.9% 50 ML BAG 50 ML ONE (20:13)
--- NOTE | 2018-08-09 20:14 | EKG ---
FACILITY: [facility] PATIENT NAME: SEEMA GRANADOS : [id number] MR: [id number] V: [id number] EXAM DATE: ORDERING PHYSICIAN: DENIZ HANEY TECHNOLOGIST: WAYNE Test Reason : NEURO Blood Pressure : / mmHG Vent. Rate : 102 BPM Atrial Rate : 102 BPM P-R Int : 218 ms QRS Dur : 094 ms QT Int : 348 ms P-R-T Axes : 048 -49 082 degrees QTc Int : 453 ms Sinus tachycardia with 1st degree AV block with probable intermittent aberrant conduction Probable left atrial enlargement Poor R wave progression anteriorly Nonspecific ST-T findings Abnormal ECG No previous ECGs available Confirmed by JALEN LYN ([id number]) on 08/10/2018 6:00:10 AM Referred By: Confirmed By:JALEN LYN
[2018-08-09] MEDS ORDERED: LORazepam 2 MG/ML VIAL IVP ONE (21:00)
[2018-08-09 21:15] VITALS: BP 136/104
--- NOTE | 2018-08-09 21:23 | RADIOLOGY IMAGING REPORT ---
FACILITY: [facility] PATIENT NAME: Jennifer Kirk : 1950 MR: [id number] V: [id number] EXAM DATE: ORDERING PHYSICIAN: DENIZ HANEY TECHNOLOGIST: Location: [facility] Patient: Jennifer Kirk : 1950 Visit/Account:[id number] Date of Sevice: 08/09/2018 CT angiogram head and neck INDICATION: Left arm weakness. COMPARISON: Same-day head CT, CTA head and neck [facility] 05/17/2018 TECHNIQUE: Axial CT images were obtained through the cerebral and neck vasculature. Multiplanar ref ormatted images were provided. 2-D and 3-D imaging was performed. Evaluation of internal carotid st enosis was performed per NASCET criteria. A total of 75 mL Isovue-370 IV contrast was administered. One of the following dose optimization techniques was utilized in the performance of this exam: Auto mated exposure control; adjustment of the mA and/or kV according to the patient's size; or use of an iterative reconstruction technique. Specific details can be referenced in the facility's radiology CT exam operational policy. FINDINGS: The middle cerebral arteries, anterior cerebral arteries, posterior cerebral arteries as well as the bilateral vertebral arteries and carotid arteries are patent without focal stricture. Unchanged 2.3 mm saccular aneurysm at the right M1 bifurcation. Mild atherosclerosis of the intracranial internal carotid arteries. The visualized aortic arch and great vessels off the aortic arch are unremarkable. Partially calcified 9 mm right posterior fossa meningioma image 40 series 4. Dural venous sinuses are patent. No acute osseous abnormality. Moderate multilevel spondylosis. C3-4 is partially fused. Soft tissu es are nonacute. Multinodular thyroid as previously described. Lung apices are clear. IMPRESSION: 1. No acute abnormality of the neck and cerebral vasculature. 2. Unchanged 2.3 mm saccular aneurysm at the right M1 bifurcation. Report Dictated By: Mingo Carlos MD at 08/09/2018 9:05 PM Report E-Signed By: Mingo Carlos MD at 08/09/2018 9:19 PM WSN:[id number]
--- NOTE | 2018-08-09 21:23 | RADIOLOGY IMAGING REPORT ---
FACILITY: [facility] [place] PATIENT NAME: Jennifer Kirk : 1950 MR: [id number] V: [id number] EXAM DATE: ORDERING PHYSICIAN: DENIZ HANEY TECHNOLOGIST: Location: [facility] [place] Patient: Jennifer Kirk : 1950 Visit/Account:[id number] Date of Sevice: 08/09/2018 CT angiogram head and neck INDICATION: Left arm weakness. COMPARISON: Same-day head CT, CTA head and neck [facility] 05/17/2018 TECHNIQUE: Axial CT images were obtained through the cerebral and neck vasculature. Multiplanar ref ormatted images were provided. 2-D and 3-D imaging was performed. Evaluation of internal carotid st enosis was performed per NASCET criteria. A total of 75 mL Isovue-370 IV contrast was administered. One of the following dose optimization techniques was utilized in the performance of this exam: Auto mated exposure control; adjustment of the mA and/or kV according to the patient's size; or use of an iterative reconstruction technique. Specific details can be referenced in the facility's radiology CT exam operational policy. FINDINGS: The middle cerebral arteries, anterior cerebral arteries, posterior cerebral arteries as well as the bilateral vertebral arteries and carotid arteries are patent without focal stricture. Unchanged 2.3 mm saccular aneurysm at the right M1 bifurcation. Mild atherosclerosis of the intracranial internal carotid arteries. The visualized aortic arch and great vessels off the aortic arch are unremarkable. Partially calcified 9 mm right posterior fossa meningioma image 40 series 4. Dural venous sinuses are patent. No acute osseous abnormality. Moderate multilevel spondylosis. C3-4 is partially fused. Soft tissu es are nonacute. Multinodular thyroid as previously described. Lung apices are clear. IMPRESSION: 1. No acute abnormality of the neck and cerebral vasculature. 2. Unchanged 2.3 mm saccular aneurysm at the right M1 bifurcation. Report Dictated By: Mingo Carlos MD at 08/09/2018 9:05 PM Report E-Signed By: Mingo Carlos MD at 08/09/2018 9:19 PM WSN:[id number]
--- NOTE | 2018-08-09 21:23 | RADIOLOGY IMAGING REPORT ---
[place] [facility]: [place] Kirk : 1950 MR: [id number] V: [id number] EXAM DATE: ORDERING PHYSICIAN: DENIZ HANEY TECHNOLOGIST: Location: [facility] [place] Patient: Jennifer Kirk : 1950 Visit/Account:[id number] Date of Sevice: 08/09/2018 AP CHEST 08/09/2018 7:40 PM. INDICATION: left arm weakness COMPARISON: 05/17/2018. FINDINGS: Lungs are well-expanded. There is no consolidation. No pleural effusion or pneumothorax. Heart size i s normal. IMPRESSION: No acute abnormality. Report Dictated By: Mingo Carlos MD at 08/09/2018 9:19 PM Report E-Signed By: Mingo Carlos MD at 08/09/2018 9:20 PM WSN:[id number]
== END 2018-08-09 21:45 | disposition short-term general hospital (02) ==
LOC: ER 19:05
DX: I63.9 Cerebral infarction, unspecified (principal)
CPT/HCPCS: 84484; 85025; 85610; 85730; 93005; 96374; 96375; 99285; J2060; J2997; J7050; Q9967; 70450; 70496; 70498; 71045; 82040; 82247; 82310; 82374; 82435; 82565; 82947; 84075; 84132; 84155; 84295; 84450; 84460; 84520

== ENCOUNTER → 2018-08-09 | Outpatient (REF) ==
[2018-05-18 08:27] VITALS: BMI 32.4
[~2018-08-09] MED LIST changes: +APIX5TAB PO; +METF-452 PO; +WARF5TAB23 PO
== END ==
LOC: AMB 20:58
PROVIDERS: ATTEND Nurse Practitioner
DX: Z76.89 Persons encountering health services in other specified circumstances (principal)

== ENCOUNTER → 2018-09-04 | Outpatient (CLI) | payer MEDICARE ==
[2018-05-18 08:27] VITALS: BMI 32.4
[~2018-09-04] MED LIST changes: +APIX5TAB PO; +METF-452 PO; +WARF5TAB23 PO
[2018-09-04 14:43] LABS: INR 1.56
== END ==
LOC: LAB 13:56
PROVIDERS: ATTEND Internal Medicine
DX: G54.9 Nerve root and plexus disorder, unspecified (principal); I63.9 Cerebral infarction, unspecified; Z79.01 Long term (current) use of anticoagulants
CPT/HCPCS: 36415; 85610

== ENCOUNTER → 2018-09-15 | Outpatient (CLI) | payer MEDICARE ==
[2018-05-18 08:27] VITALS: BMI 32.4
[2018-09-15 11:13] LABS: INR 2.39
== END ==
LOC: LAB 10:36
PROVIDERS: ATTEND Internal Medicine
DX: Z79.01 Long term (current) use of anticoagulants (principal)
CPT/HCPCS: 36415; 85610

== ENCOUNTER 2018-09-21 07:03 | Outpatient (RCR) | payer MEDICARE ==
[2018-05-18 08:27] VITALS: BMI 32.4
[2018-09-20 14:11] LABS: PLATELET COUNT, AUTOMATED 285 K/uL (150-450)
[2018-09-20 14:23] LABS: INR 2.96
--- NOTE | 2018-09-21 13:55 | RADIOLOGY IMAGING REPORT ---
FACILITY: [facility] PATIENT NAME: Jennifer Kirk : 1950 MR: [id number] V: [id number] EXAM DATE: ORDERING PHYSICIAN: ANDREW DOOLEY TECHNOLOGIST: Location: [facility] [place] Patient: Jennifer Kirk : 1950 Visit/Account:[id number] Date of Sevice: 09/21/2018 ABDOMEN W/O CONTRAST HISTORY: Hematuria, abdominal pain, vomiting TECHNIQUE: CT abdomen without intravenous contrast. Contiguous helical images was performed from the lung bases to the iliac crests. One of the following dose optimization techniques was utilized in the performance of this exam: Autom ated exposure control; adjustment of the mA and/or kV according to the patient's size; or use of an i terative reconstruction technique. Specific details can be referenced in the facility's radiology C T exam operational policy. CONTRAST: None. COMPARISON: None. FINDINGS: Visualized lung bases: Negative. Hepatobiliary: There is a hypodense lesion in segment 2 of liver measuring 2 x 2.2 cm image 31. Thi s lesion may represent a hemangioma but I would suggest a liver MRI to exclude malignancy. Spleen: Negative. Adrenals: Negative. Kidneys/Visualized : No visible radiopaque renal or ureteral stones. No evidence for hydronephros is. The right kidney may have at least partially duplicated collecting system. Pancreas: Negative. Visualized GI: There is diverticulosis of the visualized descending colon Vessels/spaces/nodes: Atherosclerotic calcification is noted. 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 Bones/soft tissues: Degenerative changes are noted. IMPRESSION: 1. No visualized renal or ureteral stones. No evidence for hydronephrosis of either kidney. 2. Indeterminate 2 x 2.2 cm lesion segment 2 of the liver. Recommend a liver MRI with and without c ontrast to exclude malignancy. Report Dictated By: Damien Garcia MD at 09/21/2018 1:43 PM Report E-Signed By: Damien Garcia MD at 09/21/2018 1:50 PM WSN:[id number]
[2018-09-21] MEDS ORDERED: ONDA4TAB97 PO (19:34)
[2018-09-21] MEDS ORDERED: TRAM-420 PO (19:34)
[2018-10-09] MEDS ORDERED: METF-452 PO (12:45)
== END 2018-09-21 18:00 | disposition home or self-care (01) ==
LOC: CT 07:03 → EDSTATUS 07:03 → CT 18:00
PROVIDERS: ATTEND Internal Medicine
DX: R10.9 Unspecified abdominal pain (principal); R31.9 Hematuria, unspecified
CPT/HCPCS: 36415; 74150; 81001; 82040; 82247; 82310; 82374; 82435; 82565; 82947; 84075; 84132; 84155; 84295; 84450; 84460; 84520; 85025; 85610; 87088

== ENCOUNTER 2018-09-21 18:51 | Emergency (ER) | payer MEDICARE ==
[2018-05-18 08:27] VITALS: Wt 83.9 kg
--- NOTE | 2018-09-21 18:57 | ER Report ---
History and Physical Time Seen By MD: 18:57 HPI/ROS CHIEF COMPLAINT: Abdominal pain, vomiting HISTORY OF PRESENT ILLNESS: 68-year-old female presents ambulatory to the ER complaining of abdominal pain and vomiting. She notes several weeks of a bdominal pain. She notes migratory pain in the right upper quadrant extending over into the left upper quadrant. She is on Coumadin for recent stroke. Her INR was drawn today by her primary care physician, Dr. Dooley and it was noted to be 2.96. She had other laboratory studies, which were unremarkable. She had a CT scan of the abdomen. There was a 2.2 cm lesion found in the liver, likely a benign cyst, but radiology is recommending an MRI to further delineate the fracture of this mass. Patient notes increased pain with eating. Primarily in the right upper quadrant. She could have cholecystitis. She notes the pain tonight is in the left upper quadrant. She has gross hematuria over the last several days. She is having an adverse reaction to the Coumadin. There is a urinalysis from earlier today which shows gross hematuria with a few white cells but no evidence of infection. REVIEW OF SYSTEMS: Respiratory: No cough, no dyspnea. Cardiovascular: No chest pain, no palpitations. Gastrointestinal: As above Musculoskeletal: No back pain. Allergies: Coded Allergies: Sulfa (Sulfonamide Antibiotics) (Verified Allergy, Mild, 09/21/18) latex (Unverified Allergy, Unknown, Rash, 09/21/18) Uncoded Allergies: TAPE (Allergy, Mild, 05/10/10) Home Meds Active Scripts Ondansetron Hcl (ZOFRAN) 4 Mg Tablet, 4 MG PO Q6H PRN for NAUSEA/VOMITING, #15 Prov:JUSTIN GORMAN DO 09/21/18 Tramadol Hcl (TRAMADOL HCL) 50 Mg Tablet, 1 TAB PO Q4-6H PRN for PAIN, #15 TAB Prov:JUSTIN GORMAN DO 09/21/18 Warfarin Sodium (WARFARIN SODIUM) 5 Mg Tablet, 5 MG PO QDAY, #30 TAB 2 Refills Prov:ANDREW DOOLEY MD 08/24/18 Atorvastatin Calcium (ATORVASTATIN CALCIUM) 80 Mg Tablet, 1 TAB PO QDAY, #90 TAB 3 Refills Prov:ANDREW DOOLEY MD 06/02/18 Lisinopril (LISINOPRIL) 5 Mg Tablet, 5 MG PO QDAY, #90 TAB 3 Refills Prov:ANDREW DOOLEY MD 06/02/18 Reported Medications Metformin Hcl (METFORMIN HCL) 1,000 Mg Tablet, 1 TAB PO QDAY, TAB 08/09/18 Aspirin (Aspirin) 81 Mg Tablet.dr, 81 MG PO DAILY, 0 Refills 05/12/10 Reviewed Nurses Notes: Yes Old Medical Records Reviewed: Yes Smoking Status: Never Smoker Hx Substance Use Disorder: No Hx Alcohol Use: No Constitutional Vital Sign - Last 24 Hours 09/21/18 09/21/18 09/21/18 09/21/18 18:58 19:02 19:20 19:21 Temp 98.0 Pulse 92 82 Resp 15 B/P (MAP) 137/84 137/84 (101) 135/77 (96) Pulse Ox 94 79 O2 Delivery Room Air 09/21/18 09/21/18 09/21/18 09/21/18 19:26 19:30 19:56 20:00 Pulse 80 76 B/P (MAP) 135/75 (95) 131/77 (95) Pulse Ox 93 91 Physical Exam General Appearance: The patient is alert, has no immediate need for airway protection and no current signs of toxicity. Vital signs stable, afebrile, pulse ox normal Eyes: Pupils equal and round no injection. Respiratory: Chest is non tender, lungs are clear to auscultation. Cardiac: regular rate and rhythm Gastrointestinal: Abdomen is soft, mild distention non tender, no masses, bowel sounds normal. Musculoskeletal: Neck: Neck is supple and non tender. Extremities have full range of motion and are non tender. Skin: No rashes or lesions. DIFFERENTIAL DIAGNOSIS: After history and physical exam differential diagnosis was considered for abdominal pain including but not limited to appendicitis, cholecystitis, gastritis, hematuria secondary to warfarin, food poisoning, viral syndrome, gastroenteritis and urinary tract infection. Medical Decision Making Data Points Result Diagram: 09/21/18190909/21/181909 Laboratory Hematology Test 09/21/18 18:57 09/21/18 19:10 Urine Color Red Urine Clarity Cloudy Urine pH 6.0 pH (4.8-9.5) Urine Specific [place] 1.008 Urine Protein 100 mg/dL (NEGATIVE) Urine Glucose (UA) Negative mg/dL (NEGATIVE) Urine Ketones Negative mg/dL (NEGATIVE) Urine Blood Large (NEGATIVE) Urine Nitrite Negative (NEGATIVE) Urine Bilirubin Negative (NEGATIVE) Urine Urobilinogen Negative mg/dL (0.2-1.9) Urine Leukocyte Esterase Negative (NEGATIVE) Urine RBC 1932 /HPF (0-2/HPF) Urine WBC 5 /HPF (0-5/HPF) Urine Squamous Epithelial Cells Many /LPF (</=FEW) Urine Bacteria Few /HPF (NONE-FEW) Urine Mucus None /HPF (NONE-FEW) Red Blood Count 4.36 M/uL (4.17-5.56) Mean Corpuscular Volume 86.0 fL (80.0-96.0) Mean Corpuscular Hemoglobin 28.9 pg (26.0-33.0) Mean Corpuscular Hemoglobin Concent 33.7 g/dL (32.0-36.0) Red Cell Distribution Width 15.0 % (11.5-14.5) Mean Platelet Volume 8.3 fL (7.2-11.1) Neutrophils (%) (Auto) 72.5 % (39.4-72.5) Lymphocytes (%) (Auto) 20.9 % (17.6-49.6) Monocytes (%) (Auto) 3.9 % (4.1-12.4) Eosinophils (%) (Auto) 2.1 % (0.4-6.7) Basophils (%) (Auto) 0.6 % (0.3-1.4) Nucleated RBC Relative Count (auto) 0.0 /100WBC Neutrophils # (Auto) 6.6 K/uL (2.0-7.4) Lymphocytes # (Auto) 1.9 K/uL (1.3-3.6) Monocytes # (Auto) 0.4 K/uL (0.3-1.0) Eosinophils # (Auto) 0.2 K/uL (0.0-0.5) Basophils # (Auto) 0.1 K/uL (0.0-0.1) Nucleated RBC Absolute Count (auto) 0.00 K/uL Sodium Level 141 mmol/L (137-145) Potassium Level 3.7 mmol/L (3.5-5.0) Chloride Level 108 mmol/L (98-107) Carbon Dioxide Level 22 mmol/L (22-31) Blood Urea Nitrogen 14 mg/dl (7-18) Creatinine 0.70 mg/dl (0.52-1.04) Glomerular Filtration Rate Calc > 60.0 Random Glucose 149 mg/dl (75-110) Calcium Level 9.4 mg/dl (8.4-10.2) Total Bilirubin 0.3 mg/dl (0.2-1.3) Aspartate Amino Transf (AST/SGOT) 24 U/L (0-35) Alanine Aminotransferase (ALT/SGPT) 24 U/L (0-56) Alkaline Phosphatase 88 U/L (0-126) C-Reactive Protein 1.8 mg/dl (<1.0) Total Protein 8.0 g/dl (6.3-8.2) Albumin 4.5 g/dl (3.5-5.0) Amylase Level 58 U/L (0-110) Lipase 82 U/L (23-300) Chemistry Test 09/21/18 18:57 09/21/18 19:10 Urine Color Red Urine Clarity Cloudy Urine pH 6.0 pH (4.8-9.5) Urine Specific [place] 1.008 Urine Protein 100 mg/dL (NEGATIVE) Urine Glucose (UA) Negative mg/dL (NEGATIVE) Urine Ketones Negative mg/dL (NEGATIVE) Urine Blood Large (NEGATIVE) Urine Nitrite Negative (NEGATIVE) Urine Bilirubin Negative (NEGATIVE) Urine Urobilinogen Negative mg/dL (0.2-1.9) Urine Leukocyte Esterase Negative (NEGATIVE) Urine RBC 1932 /HPF (0-2/HPF) Urine WBC 5 /HPF (0-5/HPF) Urine Squamous Epithelial Cells Many /LPF (</=FEW) Urine Bacteria Few /HPF (NONE-FEW) Urine Mucus None /HPF (NONE-FEW) White Blood Count 9.1 k/uL (4.5-11.0) Red Blood Count 4.36 M/uL (4.17-5.56) Hemoglobin 12.6 g/dL (12.0-16.0) Hematocrit 37.4 % (34.0-47.0) Mean Corpuscular Volume 86.0 fL (80.0-96.0) Mean Corpuscular Hemoglobin 28.9 pg (26.0-33.0) Mean Corpuscular Hemoglobin Concent 33.7 g/dL (32.0-36.0) Red Cell Distribution Width 15.0 % (11.5-14.5) Platelet Count 317 K/uL (150-450) Mean Platelet Volume 8.3 fL (7.2-11.1) Neutrophils (%) (Auto) 72.5 % (39.4-72.5) Lymphocytes (%) (Auto) 20.9 % (17.6-49.6) Monocytes (%) (Auto) 3.9 % (4.1-12.4) Eosinophils (%) (Auto) 2.1 % (0.4-6.7) Basophils (%) (Auto) 0.6 % (0.3-1.4) Nucleated RBC Relative Count (auto) 0.0 /100WBC Neutrophils # (Auto) 6.6 K/uL (2.0-7.4) Lymphocytes # (Auto) 1.9 K/uL (1.3-3.6) Monocytes # (Auto) 0.4 K/uL (0.3-1.0) Eosinophils # (Auto) 0.2 K/uL (0.0-0.5) Basophils # (Auto) 0.1 K/uL (0.0-0.1) Nucleated RBC Absolute Count (auto) 0.00 K/uL Glomerular Filtration Rate Calc > 60.0 Calcium Level 9.4 mg/dl (8.4-10.2) Total Bilirubin 0.3 mg/dl (0.2-1.3) Aspartate Amino Transf (AST/SGOT) 24 U/L (0-35) Alanine Aminotransferase (ALT/SGPT) 24 U/L (0-56) Alkaline Phosphatase 88 U/L (0-126) C-Reactive Protein 1.8 mg/dl (<1.0) Total Protein 8.0 g/dl (6.3-8.2) Albumin 4.5 g/dl (3.5-5.0) Amylase Level 58 U/L (0-110) Lipase 82 U/L (23-300) Urinalysis Test 09/21/18 18:57 Urine Color Red Urine Clarity Cloudy Urine pH 6.0 pH (4.8-9.5) Urine Specific [place] 1.008 Urine Protein 100 mg/dL (NEGATIVE) Urine Glucose (UA) Negative mg/dL (NEGATIVE) Urine Ketones Negative mg/dL (NEGATIVE) Urine Blood Large (NEGATIVE) Urine Nitrite Negative (NEGATIVE) Urine Bilirubin Negative (NEGATIVE) Urine Urobilinogen Negative mg/dL (0.2-1.9) Urine Leukocyte Esterase Negative (NEGATIVE) Urine RBC 1932 /HPF (0-2/HPF) Urine WBC 5 /HPF (0-5/HPF) Urine Squamous Epithelial Cells Many /LPF (</=FEW) Urine Bacteria Few /HPF (NONE-FEW) Urine Mucus None /HPF (NONE-FEW) EKG/Imaging Imaging Results: Results from CAT scan from earlier today done by Dr. Dooley ABDOMEN W/O CONTRAST HISTORY: Hematuria, abdominal pain, vomiting TECHNIQUE: CT abdomen without intravenous contrast. Contiguous helical images was performed from the lung bases to the iliac crests. One of the following dose optimization techniques was utilized in the performance of this exam: Automated exposure control; adjustment of the mA and/or kV according to the patient's size; or use of an iterative reconstruction technique. Specific details can be referenced in the facility's radiology CT exam operational policy. CONTRAST: None. COMPARISON: None. FINDINGS: Visualized lung bases: Negative. Hepatobiliary: There is a hypodense lesion in segment 2 of liver measuring 2 x 2.2 cm image 31. This lesion may represent a hemangioma but I would suggest a liver MRI to exclude malignancy. Spleen: Negative. Adrenals: Negative. Kidneys/Visualized : No visible radiopaque renal or ureteral stones. No evidence for hydronephrosis. The right kidney may have at least partially duplicated collecting system. Pancreas: Negative. Visualized GI: There is diverticulosis of the visualized descending colon Vessels/spaces/nodes: Atherosclerotic calcification is noted. There is a left- sided IVC below the left renal vein, a congenital variant. Bones/soft tissues: Degenerative changes are noted. IMPRESSION: 1. No visualized renal or ureteral stones. No evidence for hydronephrosis of either kidney. 2. Indeterminate 2 x 2.2 cm lesion segment 2 of the liver. Recommend a liver MRI with and without contrast to exclude malignancy. The study was read by the radiologist. I viewed the images myself on the PACS system. ED Course/Re-evaluation Clinical Indication for ER IV: Hydration, IV Access ED Course Patient was admitted to an examination room. H&P was done. The differential diagnoses was considered. Patient with hematuria. Patient's on warfarin. Her INR was checked today at 2.96. Patient's had darkening of her urine over the last several days. She has clara hematuria now. She was seen by her primary care today, Dr. Dooley. He did some other laboratory work and a CT scan of the patient's abdomen for upper abdominal pain which she's been having for several weeks. The CAT scan was unremarkable except for 2.2. Liver cyst, likely hemangioma. Patient has a peripheral IV established. Repeat blood diagnostic studies are performed. Her lipase, amylase and LFTs are unremarkable for evidence of acute cholecystitis. There was nothing seen on the CAT scan. Patient's much improved after Zofran and morphine 2 mg IV. She is advised a cl ear liquid diet for 48 hours and then advance to the brat diet, to the weekend. Patient's given Zofran and tramadol for pain relief. She is advised to hold her warfarin for 3 days to see if the hematuria will arsenio. Decision to Disposition Date: Sep 21, 2018 Decision to Disposition Time: 19:27 Depart Departure Latest Vital Signs Vital Signs Date Time Temp Pulse Resp B/P (MAP) Pulse Ox O2 Delivery O2 Flow Rate FiO2 09/21/18 20:00 131/77 (95) 09/21/18 19:56 76 91 09/21/18 18:58 98.0 15 Room Air Impression: Primary Impression: Abdominal pain Additional Impressions: Vomiting Hematuria Anticoagulation adequate History of CVA (cerebrovascular accident) History of aneurysm Condition: Improved Disposition: HOME OR SELF-CARE Referrals: ANDREW DOOLEY MD (PCP) New Scripts Ondansetron Hcl (ZOFRAN) 4 Mg Tablet 4 MG PO Q6H PRN for NAUSEA/VOMITING, #15 Prov: JUSTIN GORMAN DO 09/21/18 Tramadol Hcl (TRAMADOL HCL) 50 Mg Tablet 1 TAB PO Q4-6H PRN for PAIN, #15 TAB Prov: JUSTIN GORMAN DO 09/21/18 Patient Instructions: Abdominal Pain (ED), Clear Liquid Diet (ED) Additional Instructions: Follow clear liquid diet for 24-48 hours, then advance to Jos diet, bananas, rice, applesauce and toast Avoid fatty food, greasy foods, vegetables and dairy Use medication to control nausea and pain Stop taking her warfarin for 3 days Follow-up with your primary care early next week Problem Qualifiers Primary Impression: Abdominal pain Abdominal location: upper abdomen, unspecified Qualified Codes: R10.10 - Upper abdominal pain, unspecified Additional Impressions: Vomiting Vomiting type: unspecified Vomiting Intractability: unspecified Nausea p resence: unspecified Qualified Codes: R11.10 - Vomiting, unspecified Hematuria Hematuria type: unspecified type Qualified Codes: R31.9 - Hematuria, unspecified JUSTIN GORMAN DO Sep 21, 2018 18:57
[2018-09-21] MEDS ORDERED: NS(*) 0.9% 1000 ML BAG 1,000 ML IV ONE (19:06)
[2018-09-21] MEDS ORDERED: ONDANSETRON 4 MG/2 ML VIAL IVP ONE (19:10)
[2018-09-21] MEDS ORDERED: MORPHINE 2 MG/ML SYR IVP ONE (19:10)
[2018-09-21 19:18] LABS: PLATELET COUNT, AUTOMATED 317 K/uL (150-450)
[2018-09-21] MEDS ORDERED: TRAM-420 PO (19:34)
[2018-09-21] MEDS ORDERED: ONDA4TAB97 PO (19:34)
[2018-09-21] MEDS ORDERED: traMADol 50 MG TAB TH 2 TAB/BOTTLE PO ONE (19:55)
[2018-09-21] MEDS ORDERED: ONDANSETRON 4 MG ODT TH SL ONE (19:55)
[2018-09-21 20:00] VITALS: BP 131/77
== END 2018-09-21 20:13 | disposition home or self-care (01) ==
LOC: ER 19:00
DX: R10.11 Right upper quadrant pain (principal); R10.12 Left upper quadrant pain; R11.10 Vomiting, unspecified; R31.9 Hematuria, unspecified; Z79.01 Long term (current) use of anticoagulants; Z86.73 Personal history of transient ischemic attack (TIA), and cerebral infarction without residual deficits
CPT/HCPCS: 81001; 82150; 83690; 85025; 86140; 96374; 96375; 99284; A9270; J2270; J2405; J7030; Q0162; 82040; 82247; 82310; 82374; 82435; 82565; 82947; 84075; 84132; 84155; 84295; 84450; 84460; 84520; C9399; S0119

== ENCOUNTER → 2018-09-25 | Outpatient (CLI) | payer MEDICARE ==
[2018-05-18 08:27] VITALS: BMI 32.4
[~2018-09-25] MED LIST changes: +GADOBENATE 529MG/1ML 15ML VIAL IVP ONE; +NS(*) 0.9% 50 ML BAG 50 ML ONE; +ONDA4TAB97 PO; +TRAM-420 PO
--- NOTE | 2018-09-25 10:53 | RADIOLOGY IMAGING REPORT ---
FACILITY: [facility] PATIENT NAME: Jennifer Kirk : 1950 MR: [id number] V: [id number] EXAM DATE: ORDERING PHYSICIAN: ANDREW DOOLEY TECHNOLOGIST: Location: [facility] Patient: Jennifer Kirk : 1950 Visit/Account:[id number] Date of Sevice: 09/25/2018 ABDOMEN W W/O CONTRAST HISTORY: liver mass ADDITIONAL HISTORY: None. TECHNIQUE: Multiplanar multisequence magnetic resonance imaging of the abdomen without and with intr avenous contrast. CONTRAST: 15 cc of MultiHance COMPARISON: CT 09/21/2018 FINDINGS: Liver: Prior CT examination has been reviewed. 2.2 x 2.1 cm lesion within the left hepatic lobe which exhibits signal drop off on T1 gradient echo opposed phase images. Vague high signal on T2-weighted images. No diffusion abnormality. The arterial phase is late which limits evaluation. Otherwise no ab normal enhancement. Gallbladder and bile ducts: Negative. The common bile duct measures 3 mm. Spleen: Negative. Adrenal glands: Negative. Pancreas: Negative. Kidneys: Subcentimeter simple cysts bilaterally. No hydronephrosis. Vessels: Normal Bowel/peritoneum/mesentery: Small hiatal hernia. Lymph nodes: Negative Bones/soft tissues: Negative Visualized lung bases: Negative Visualized pelvis: Negative Other findings: None significant IMPRESSION: 1. 2.2 x 2.1 cm lesion within the left hepatic lobe with chemical shift consistent with microscopic f at. There is no true arterial phase to determine arterial phase enhancement. Differential includes fo courtney fat, hepatic adenoma and hepatocellular carcinoma. Recommend clinical correlation with alpha-feto protein level and CT of the abdomen (3 phase liver) for further evaluation Report Dictated By: Darryl Monte MD at 09/25/2018 10:33 AM Report E-Signed By: Darryl Monte MD at 09/25/2018 10:49 AM WSN:[id number]
== END ==
LOC: MRI 03:49
PROVIDERS: ATTEND Internal Medicine
DX: R16.0 Hepatomegaly, not elsewhere classified (principal); K76.89 Other specified diseases of liver
CPT/HCPCS: 74183; A9577; J7050

== ENCOUNTER → 2018-09-27 | Outpatient (CLI) | payer MEDICARE ==
[2018-05-18 08:27] VITALS: BMI 32.4
[~2018-09-27] MED LIST changes: -GADOBENATE 529MG/1ML 15ML VIAL IVP ONE; -NS(*) 0.9% 50 ML BAG 50 ML ONE
[2018-09-27 16:12] LABS: INR 1.34
== END ==
LOC: LAB 15:37
PROVIDERS: ATTEND Internal Medicine
DX: R31.9 Hematuria, unspecified (principal); R11.10 Vomiting, unspecified; R16.0 Hepatomegaly, not elsewhere classified; E11.9 Type 2 diabetes mellitus without complications; G45.9 Transient cerebral ischemic attack, unspecified
CPT/HCPCS: 36415; 82105; 82565; 85610

== ENCOUNTER → 2018-10-04 | Outpatient (CLI) | payer MEDICARE ==
[2018-05-18 08:27] VITALS: BMI 32.4
[~2018-10-04] MED LIST changes: +IOPAMIDOL 76% 75 ML INFUS BTL 75 ML ONE
--- NOTE | 2018-10-04 10:11 | RADIOLOGY IMAGING REPORT ---
FACILITY: [facility] [place] PATIENT NAME: Jennifer Kirk : 1950 MR: [id number] V: [id number] EXAM DATE: ORDERING PHYSICIAN: ANDREW DOOLEY TECHNOLOGIST: Location: [facility] [place] Patient: Jennifer Kirk : 1950 Visit/Account:[id number] Date of Sevice: 10/04/2018 CT ABDOMEN WITH IV CONTRAST CLINICAL INFORMATION: Liver mass on prior CT and MR history of hematuria TECHNIQUE: Axial CT images were obtained through the abdomen during injection of nonionic iodinated intravenous contrast. Post contrast imaging was performed in the arterial phase, the portal venous phase and delayed phase. Reformatted coronal and sagittal images were also obtained.Dose Lowering Oneil hnique One of the following dose optimization techniques was utilized in the performance of this exam: Autom ated exposure control; adjustment of the mA and/or kV according to the patient's size; or use of an i terative reconstruction technique. Specific details can be referenced in the facility's radiology C T exam operational policy. CONTRAST: 80 mL of Isovue 370 IV contrast. COMPARISON: MR the abdomen September 25, [address] of the abdomen September 21, 2018. FINDINGS: Lower lung seaman: Limited views lower lung field are unremarkable. Liver: When compared to the prior study is again noted is a 2.2 x 2.1 cm lesion in the lateral segmen t left lobe of the liver that appears unchanged in size.. No definite arterial phase enhancement or washout is identified. Biliary: Gallbladder appears unremarkable as well as the intra and extra hepatic biliary system. Pancreas: Normal appearance. Spleen: Normal appearance. Adrenal glands: Unremarkable. Kidneys / retroperitoneum: Small subcentimeter hypodensities in both kidneys may represent cysts alth ough are too small to characterize by CT Bowel / peritoneum / mesenteries: There is scattered colonic diverticula although no CT evidence of a cute diverticulitis. There is a small hiatal hernia Lymph node assessment: No pathologic adenopathy identified. 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 Musculoskeletal / Body wall: There spondylotic changes of the visualized thoracolumbar spine IMPRESSION: 1. When compared to the prior studies again noted is a 2.2 x 2.1 cm lesion in the lateral segment le ft lobe of the liver that appears unchanged in size. No definite arterial phase enhancement or washo ut is identified. The previous MR did show chemical shift consistent with microscopic fat. Although this could represent an area of focal fatty infiltration a lipidic hepatocellular carcinoma cannot b e totally excluded . This could be followed with a six-month follow-up three-phase liver CT. Correl ation with clinical findings such as abnormal LFTs, abnormal alpha-fetoprotein level, history of alco holic liver disease or hepatitis is needed. If the patient has any risk factors biopsy is recommende d. Report Dictated By: Lucina Perez MD at 10/04/2018 9:29 AM Report E-Signed By: Lucina Perez MD at 10/04/2018 10:08 AM DEMETRISN:[email or web address]
== END ==
LOC: CT 01:11
PROVIDERS: ATTEND Internal Medicine
DX: K76.89 Other specified diseases of liver (principal); K44.9 Diaphragmatic hernia without obstruction or gangrene; R31.9 Hematuria, unspecified; R16.0 Hepatomegaly, not elsewhere classified; R11.10 Vomiting, unspecified
CPT/HCPCS: 74160; Q9967

== ENCOUNTER → 2018-10-09 | Outpatient (CLI) | payer MEDICARE ==
[2018-05-18 08:27] VITALS: BMI 32.4
[~2018-10-09] MED LIST changes: -IOPAMIDOL 76% 75 ML INFUS BTL 75 ML ONE
[2018-10-09 11:05] LABS: PLATELET COUNT, AUTOMATED 272 K/uL (150-450)
[2018-10-09 11:22] LABS: LDL CHOLESTEROL 52 mg/dl
[2018-10-09 11:28] LABS: INR 2.68
== END ==
LOC: LAB 10:44
PROVIDERS: ATTEND Internal Medicine
DX: E11.9 Type 2 diabetes mellitus without complications (principal); I63.9 Cerebral infarction, unspecified; E78.5 Hyperlipidemia, unspecified; I10 Essential (primary) hypertension; R31.9 Hematuria, unspecified
CPT/HCPCS: 36415; 80074; 81001; 82040; 82247; 82310; 82374; 82435; 82465; 82565; 82947; 83036; 83718; 84075; 84132; 84155; 84295; 84443; 84450; 84460; 84478; 84520; 85025; 85610; 85730

== ENCOUNTER → 2018-10-11 | Outpatient (CLI) | payer MEDICARE ==
[2018-05-18 08:27] VITALS: BMI 32.4
== END ==
LOC: RESP 08:43
PROVIDERS: ATTEND Surgery
DX: Z02.9 Encounter for administrative examinations, unspecified (principal)

== ENCOUNTER 2018-10-31 00:54 | Day surgery (SDC) | payer MEDICARE ==
[2018-05-18 08:27] VITALS: Ht 162.6 cm; Wt 82.6 kg
[~2018-10-31] VITALS: Ht 162.6 cm; Wt 82.6 kg
[2018-10-31] VITALS (10 sets, daily range): BP systolic 115–146; BP diastolic 60–78
[~2018-10-31 00:54] MED LIST changes: +LIDOCAINE/SOD BICARB 8.4% SYR ID ONE; +NORMOSOL R SOLN(*) 1000 ML BAG 1,000 ML IV PRN
[2018-10-31] MEDS ORDERED: LIDOCAINE/SOD BICARB 8.4% SYR ID ONE (09:25)
[2018-10-31] MEDS ORDERED: NORMOSOL R SOLN(*) 1000 ML BAG 1,000 ML IV PRN (09:25)
[2018-10-31 10:08] LABS: INR 1.04
[2018-10-31] MEDS ORDERED: PROPOFOL EMUL(*) 10MG/ML 20 ML 60 ML ONE (10:48)
[2018-10-31] MEDS ORDERED: KETAMINE HCL 500 MG/10 ML VIAL ONE (10:48)
--- NOTE | 2018-10-31 11:40 | Short(Outpt) Discharge Summary ---
Discharge Summary Reason for Hosp/Final Diag: (1) Abdominal pain Hospital Course & Plan: h/o colon polyp. pt presented for egd/colonoscopy. she tolerated the procedure well and there were no complications. path pending. pt will be sent home when criteria met. Departure Discharge to: Home Discharge Instructions Home Meds Active Scripts Metformin Hcl (METFORMIN HCL) 1,000 Mg Tablet, 1 TAB PO BID, #180 TAB 3 Refills Prov:ANDREW DOOLEY MD 10/09/18 Warfarin Sodium (WARFARIN SODIUM) 5 Mg Tablet, 5 MG PO QDAY, #30 TAB 2 Refills Prov:ANDREW DOOLEY MD 08/24/18 Atorvastatin Calcium (ATORVASTATIN CALCIUM) 80 Mg Tablet, 1 TAB PO QDAY, #90 TAB 3 Refills Prov:ANDREW DOOLEY MD 06/02/18 Lisinopril (LISINOPRIL) 5 Mg Tablet, 5 MG PO QDAY, #90 TAB 3 Refills Prov:ANDREW DOOLEY MD 06/02/18 Reported Medications Aspirin (Aspirin) 81 Mg Tablet., 81 MG PO DAILY, 0 Refills 05/12/10 Diet: Regular Activity: As Tolerated Special Instructions: we will call you in 7-10 days with biopsy results. JUSTICE MAYO Oct 31, 2018 11:40
[2018-10-31] MEDS ORDERED: ASPIRIN 81 MG CHEW PO ONE (12:15)
--- NOTE | 2018-10-31 12:21 | NUR ---
1221- SITTING VSS, PT REPORTS DIZZINESS, PT DENIES N/V, PT WOULD LIKE TO REMAIN SITTING TO SEE IF DIZZINESS SUBSIDES, PT REPORTS HEADACHE
--- NOTE | 2018-10-31 12:23 | NUR ---
1223- BED SIDE COMMODE, RE-STARTED IV
--- NOTE | 2018-10-31 12:28 | NUR ---
1228- PT ON BEDSIDE COMMODE, REPORTS SOME DIZZINESS AND NAUSEA
== END 2018-10-31 13:30 | disposition home or self-care (01) ==
LOC: OR 00:54
PROVIDERS: ATTEND Surgery
DX: Z12.11 Encounter for screening for malignant neoplasm of colon (principal); K31.7 Polyp of stomach and duodenum; K22.2 Esophageal obstruction; I85.00 Esophageal varices without bleeding; K29.70 Gastritis, unspecified, without bleeding; Z86.010 Personal history of colon polyps
CPT/HCPCS: 00813; 36416; 43239; 82948; 85610; 87077; 88305; 88344; A9270; G0121; J2704; J3490

== ENCOUNTER → 2018-11-21 | Outpatient (CLI) | payer MEDICARE ==
[2018-05-18 08:27] VITALS: BMI 32.4
[~2018-11-21] MED LIST changes: -LIDOCAINE/SOD BICARB 8.4% SYR ID ONE; -NORMOSOL R SOLN(*) 1000 ML BAG 1,000 ML IV PRN; +PANT40TA65 PO
[2018-11-21 09:47] LABS: INR 2.52
== END ==
LOC: LAB 09:22
PROVIDERS: ATTEND Internal Medicine
DX: Z51.81 Encounter for therapeutic drug level monitoring (principal); Z79.01 Long term (current) use of anticoagulants
CPT/HCPCS: 36415; 85610

== ENCOUNTER → 2018-12-08 | Outpatient (CLI) | payer MEDICARE ==
[2018-05-18 08:27] VITALS: BMI 32.4
[2018-12-08 13:12] LABS: INR 2.52
== END ==
LOC: LAB 12:22
PROVIDERS: ATTEND Internal Medicine
DX: I63.9 Cerebral infarction, unspecified (principal)
CPT/HCPCS: 36415; 85610

== ENCOUNTER → 2018-12-12 | Outpatient (CLI) | payer MEDICARE ==
[2018-05-18 08:27] VITALS: BMI 32.4
[2018-12-12 08:56] LABS: PLATELET COUNT, AUTOMATED 292 K/uL (150-450)
[2018-12-12 09:51] LABS: LDL CHOLESTEROL 68 mg/dl
--- NOTE | 2018-12-12 14:18 | RADIOLOGY IMAGING REPORT ---
FACILITY: [facility] PATIENT NAME: Jennifer Kirk : 1950 MR: [id number] V: [id number] EXAM DATE: ORDERING PHYSICIAN: ANDREW DOOLEY TECHNOLOGIST: Location: [facility] [place] Patient: Jennifer Kirk : 1950 Visit/Account:[id number] Date of Sevice: 12/12/2018 Exam type: US VENOUS LOWER EXT RT History: contusion, edema Comparison: None. Findings: The right lower extremity veins are imaged including the right common femoral vein greater saphenous vein superficial femoral vein popliteal vein posterior tibial vein peroneal vein revealing no evidenc e of intraluminal thrombi. The veins were compressible and demonstrated augmentation. Incidentally noted is extensive soft tissue swelling over the medial right hernandez. There is a hypoecho ic collection measuring 2 x 1.2 x 2.6 cm likely representing a hematoma IMPRESSION: 1. No sonographic evidence DVT involving the right lower extremity veins Probable hematoma over the medial right hernandez Report Dictated By: Lucina Perez MD at 12/12/2018 2:12 PM Report E-Signed By: Lucina Perez MD at 12/12/2018 2:13 PM WSN:[email or web address]
== END ==
LOC: LAB 08:34
PROVIDERS: ATTEND Internal Medicine
DX: I63.9 Cerebral infarction, unspecified (principal); E11.9 Type 2 diabetes mellitus without complications; R60.0 Localized edema; E78.5 Hyperlipidemia, unspecified; R31.9 Hematuria, unspecified
CPT/HCPCS: 36415; 81001; 82040; 82247; 82310; 82374; 82435; 82465; 82565; 82947; 83036; 83718; 84075; 84132; 84155; 84295; 84450; 84460; 84478; 84520; 85025

== ENCOUNTER → 2019-01-10 | Outpatient (CLI) | payer MEDICARE ==
[2018-05-18 08:27] VITALS: BMI 32.4
[2019-01-10 17:09] LABS: INR 2.52
== END ==
LOC: LAB 16:41
PROVIDERS: ATTEND Internal Medicine
DX: Z51.81 Encounter for therapeutic drug level monitoring (principal); Z79.01 Long term (current) use of anticoagulants
CPT/HCPCS: 36415; 85610

== ENCOUNTER 2019-01-27 19:22 | Emergency (ER) | payer MEDICARE ==
[2018-05-18 08:27] VITALS: Wt 82.6 kg
[2019-01-27 19:30] VITALS: BP 137/85
--- NOTE | 2019-01-27 19:33 | ER Report ---
History and Physical Time Seen By MD: 19:32 Hx. of Stated Complaint: PATIENT REPORTS PAIN, REDNESS, AND SWELLING IN LEFT EYE THAT STATED ABOUT 2 HOURS PRIOR HPI/ROS CHIEF COMPLAINT: Left eye pain and discharge HISTORY OF PRESENT ILLNESS: This is a 68-year-old female who presents to the emergency room for left eye pain and discharge. Patient states that about 2 hours prior to arrival, she began to notice her left eye had some discharge, he came somewhat uncomfortable, noted some lid swelling as well. She did remove her left contact, and then noted a significant increase in the amount of discharge. Denies injury. No recent contact with anyone who has conjunctivitis that she is aware of. She has no other complaints, no fevers, no chest pain or shortness of breath. REVIEW OF SYSTEMS: Eyes: As above. Respiratory: No cough, no dyspnea. Cardiovascular: No chest pain, no palpitations. Gastrointestinal: No vomiting, no abdominal pain. Musculoskeletal: No back pain. Allergies: Coded Allergies: Sulfa (Sulfonamide Antibiotics) (Verified Allergy, Mild, 01/27/19) latex (Unverified Allergy, Unknown, Rash, 01/27/19) Uncoded Allergies: TAPE (Allergy, Mild, 05/10/10) Home Meds Active Scripts Pantoprazole Sodium (PANTOPRAZOLE SODIUM) 40 Mg Tablet., 40 MG PO QDAY for 60 Days, #60 TAB.SR 1 Refill Prov:JUSTICE MAYO 01/19/19 Warfarin Sodium (WARFARIN SODIUM) 5 Mg Tablet, 5 MG PO QDAY, #30 TAB 11 Refills Prov:ANDREW DOOLEY MD 11/28/18 Metformin Hcl (METFORMIN HCL) 1,000 Mg Tablet, 1 TAB PO BID, #180 TAB 3 Refills Prov:ANDREW DOOLEY MD 10/09/18 Atorvastatin Calcium (ATORVASTATIN CALCIUM) 80 Mg Tablet, 1 TAB PO QDAY, #90 TAB 3 Refills Prov:ANDREW DOOLEY MD 06/02/18 Lisinopril (LISINOPRIL) 5 Mg Tablet, 5 MG PO QDAY, #90 TAB 3 Refills Prov:ANDREW DOOLEY MD 06/02/18 Reported Medications Aspirin (Aspirin) 81 Mg Tablet., 81 MG PO DAILY, 0 Refills 05/12/10 Past Medical/Surgical History Patient has a past medical and surgical history of TIA 2, DVT, hypertension, hypercholesterolemia, CPAP, hepatitis as a child, hematuria, some limitations to his left arm and hand secondary to stroke, left knee replacement, wears glasses and contacts, time 2 diabetes, polyps removed on colonoscopy. Reviewed Nurses Notes: Yes Hx Smoking: No Smoking Status: Never Smoker Exposure to Second Hand Smoke?: No Hx Substance Use Disorder: No Hx Alcohol Use: No Constitutional Vital Sign - Last 24 Hours 01/27/19 01/27/19 01/27/19 01/27/19 19:22 19:25 19:26 19:30 Temp 98.1 Pulse ??? 94 Resp 14 B/P (MAP) 149/87 (107) 149/87 137/85 (102) Pulse Ox 96 O2 Delivery Room Air Physical Exam General Appearance: The patient is alert, has no immediate need for airway protection and no current signs of toxicity. Eyes: Pupils equal, injected, clear to milky discharge. Aviles lamp exam showing uptake to the 6:00 aspect of the cornea. Respiratory: Chest is non tender, lungs are clear to auscultation. Cardiac: regular rate and rhythm. Gastrointestinal: Abdomen is soft and non tender, no masses, bowel sounds normal. Musculoskeletal: Neck: Neck is supple and non tender. Extremities have full range of motion and are non tender. Skin: No rashes or lesions. DIFFERENTIAL DIAGNOSIS: After history and physical exam differential diagnosis was considered for seasonal allergies, bacterial conjunctivitis, viral conjunctivitis, corneal abrasion, glaucoma, orbital cellulitis. Medical Decision Making ED Course/Re-evaluation ED Course The patient was admitted to room. A history of disc or obtained. Differential diagnoses were considered. After examination patient, and Aviles lamp exam, did determine the patient has a corneal abrasion to the 6:00 aspect of the left eye. She was given tobramycin eyedrops, instructed to use them every 4 hours for the next 7 days, if no improvement follow-up with her eye doctor, worsening condition return to the ER, patient expressed understanding, she also understands not to wear contacts until she is done with the antibiotics. She had no other questions or concerns at this time and discharged home. Decision to Disposition Date: January 27, 2019 Decision to Disposition Time: 19:57 Depart Departure Latest Vital Signs Vital Signs Date Time Temp Pulse Resp B/P (MAP) Pulse Ox O2 Delivery O2 Flow Rate FiO2 01/27/19 19:30 137/85 (102) 01/27/19 19:26 98.1 94 14 96 Room Air Impression: Primary Impression: Injury of conjunctiva and corneal abrasion of left eye w/o FB Condition: Improved Disposition: HOME OR SELF-CARE Referrals: ANDREW DOOLEY MD (PCP) Patient Instructions: Corneal Abrasion (ED) Additional Instructions: You have a corneal abrasion to the left eye. Did not wear contacts until the antibiotic eyedrops are complete. Be sure to wear protective lenses. Use the tobramycin for the next 7 days. If no significant improvement of your symptoms please follow-up with your eye doctor next week for reevaluation. Get plenty of rest. Drink plenty of water. Return to the emergency department for any other concerns or worsening symptoms. Problem Qualifiers Primary Impression: Injury of conjunctiva and corneal abrasion of left eye w/o FB Encounter type: initial encounter Qualified Codes: S05.02XA - Injury of conjunctiva and corneal abrasion without foreign body, left eye, initial encounter ZENIA CAAL-ALISE January 27, 2019 19:33
[2019-01-27] MEDS ORDERED: PROPARACAINE 0.5% OP 15ML BTL OD ONE (19:40)
[2019-01-27] MEDS ORDERED: FLUORESCEIN SOD 1 MG 1 EA STRP OD ONE (19:40)
[2019-01-27] MEDS ORDERED: TOBRAMYCIN 0.3% OP SOLN 5 ML OD ONE (19:50)
== END 2019-01-27 20:08 | disposition home or self-care (01) ==
LOC: ER 19:30
DX: S05.02XA Injury of conjunctiva and corneal abrasion without foreign body, left eye, initial encounter (principal)
CPT/HCPCS: 99282; A9270

== ENCOUNTER → 2019-02-13 | Outpatient (CLI) | payer MEDICARE ==
[2018-05-18 08:27] VITALS: BMI 32.4
[2019-02-13 10:13] LABS: INR 1.92
== END ==
LOC: LAB 09:43
PROVIDERS: ATTEND Internal Medicine
DX: I63.9 Cerebral infarction, unspecified (principal)
CPT/HCPCS: 36415; 85610

== ENCOUNTER → 2019-03-16 | Outpatient (CLI) | payer MEDICARE ==
[2018-05-18 08:27] VITALS: BMI 32.4
[2019-03-16 14:04] LABS: INR 1.61
== END ==
LOC: LAB 13:07
PROVIDERS: ATTEND Internal Medicine
DX: G45.9 Transient cerebral ischemic attack, unspecified (principal)
CPT/HCPCS: 36415; 85610

== ENCOUNTER → 2019-04-16 | Outpatient (CLI) | payer MEDICARE ==
[2018-05-18 08:27] VITALS: BMI 32.4
[2019-04-16 13:12] LABS: INR 1.47
== END ==
LOC: LAB 12:15
PROVIDERS: ATTEND Internal Medicine
DX: Z79.01 Long term (current) use of anticoagulants (principal)
CPT/HCPCS: 36415; 85610

== ENCOUNTER → 2019-04-24 | Outpatient (CLI) | payer MEDICARE ==
[2018-05-18 08:27] VITALS: BMI 32.4
[2019-04-24 11:23] LABS: INR 2.31
== END ==
LOC: LAB 10:18
PROVIDERS: ATTEND Internal Medicine
DX: I63.9 Cerebral infarction, unspecified (principal); Z79.01 Long term (current) use of anticoagulants
CPT/HCPCS: 36415; 85610

== ENCOUNTER → 2019-05-02 | Outpatient (CLI) | payer MEDICARE ==
[2018-05-18 08:27] VITALS: BMI 32.4
[~2019-05-02] MED LIST changes: +IOPAMIDOL 76% 100 ML INFUS BTL 0 ML ONE; +IOPAMIDOL 76% 100 ML INFUS BTL 100 ML ONE; +NS(*) 0.9% 50 ML BAG 50 ML ONE
--- NOTE | 2019-05-02 10:28 | RADIOLOGY IMAGING REPORT ---
FACILITY: [facility] PATIENT NAME: Jennifer Kirk : 1950 MR: [id number] V: [id number] EXAM DATE: ORDERING PHYSICIAN: JUSTICE MAYO TECHNOLOGIST: Location: [facility] Patient: Jennifer Kirk : 1950 Visit/Account:[id number] Date of Sevice: 05/02/2019 CT ABDOMEN PELVIS W/ CON HISTORY: Follow-up liver lesion TECHNIQUE: CT abdomen and pelvis with intravenous contrast. Contiguous axial images of the abdomen and pelvis was performed from the lung bases to the symphysis pubis. Three-phase liver protocol was u sed. One of the following dose optimization techniques was utilized in the performance of this exam: Autom ated exposure control; adjustment of the mA and/or kV according to the patient's size; or use of an i terative reconstruction technique. Specific details can be referenced in the facility's radiology C T exam operational policy. CONTRAST: 75 cc of Isovue-370 COMPARISON: CT scan 10/04/2018, MRI 09/25/2018, CT scan 09/21/2018 FINDINGS: Visualized lung bases: There is a small hiatal hernia. Hepatobiliary: Liver measures 19.3 cm in craniocaudal length with diffuse fatty infiltration. The pr eviously described segment 2 liver lesion is less evident on the current study and likely represents focal fat within a fatty liver. Hypervascular focus segment 3 of liver is stable and benign. No other concerning liver lesions seen. Gallbladder and bile ducts are unremarkable. Spleen: Negative. Adrenals: Negative. Kidneys/: Small benign right renal cortical cyst is noted Pancreas: Negative. GI: Negative. Vessels/spaces/nodes: Incidental left-sided IVC below the renal vein, a normal variant. Atherosclero tic calcifications noted. Bones/soft tissues: Degenerative changes are noted. IMPRESSION: 1. The previously described segment 2 liver lesion is faintly visible on the current study and likel y reflects focal fat within a fatty liver. No concerning liver lesions are seen. 2. Small hiatal hernia. Report Dictated By: Damien Garcia MD at 05/02/2019 9:41 AM Report E-Signed By: Damien Garcia MD at 05/02/2019 10:19 AM WSN:[email or web address]
== END ==
LOC: CT 01:45
PROVIDERS: ATTEND Surgery
DX: K76.9 Liver disease, unspecified (principal); K46.9 Unspecified abdominal hernia without obstruction or gangrene
CPT/HCPCS: 36415; 74177; 82565; J7050; Q9967

== ENCOUNTER 2019-05-08 12:44 | Emergency (ER) | payer MEDICARE ==
[~2019-05-08 12:44] MED LIST changes: -MECL25TA27 PO
--- NOTE | 2019-05-08 12:54 | ER Report ---
History and Physical Time Seen By MD: 12:47 HPI/ROS CHIEF COMPLAINT: Altered mental status, extremity shaking, aphasia HISTORY OF PRESENT ILLNESS: Patient is a 67-year-old female here with complaints of the above. Last known normal was at approximately 1210. Patient reportedly had acute onset of aphasia, shaking of the upper extremities. She does have a reported history of ischemic and hemorrhagic strokes, timeline unclear at this time as the patient is unable to answer questions. Patient is reportedly on Coumadin. REVIEW OF SYSTEMS: Unable to obtain due to patient's mental status Allergies: Coded Allergies: Sulfa (Sulfonamide Antibiotics) (Verified Allergy, Unknown, RASH, 05/08/19) Constitutional Vital Sign - Last 24 Hours 05/08/19 05/08/19 05/08/19 05/08/19 12:50 12:51 13:14 13:18 Temp 97.2 Pulse 80 79 Resp 15 24 B/P (MAP) 143/77 (99) 125/66 (85) Pulse Ox 91 92 O2 Delivery Room Air 05/08/19 05/08/19 05/08/19 05/08/19 13:23 13:30 13:38 13:45 Pulse 79 76 Resp 22 12 B/P (MAP) 108/65 (79) 121/66 (84) Pulse Ox 90 95 05/08/19 05/08/19 05/08/19 05/08/19 13:53 14:00 14:05 14:10 Pulse 75 71 73 Resp 13 18 18 B/P (MAP) 122/73 (89) Pulse Ox 94 92 92 05/08/19 05/08/19 05/08/19 05/08/19 14:30 14:40 14:45 15:00 Pulse 73 71 71 Resp 8 24 14 B/P (MAP) 114/66 (82) 110/67 (81) Pulse Ox 93 91 94 05/08/19 05/08/19 05/08/19 05/08/19 15:05 15:57 16:00 16:05 Pulse 75 78 Resp 15 11 B/P (MAP) 123/73 (90) 116/57 (76) Pulse Ox 95 95 05/08/19 05/08/19 05/08/19 05/08/19 16:30 16:35 17:00 17:05 Pulse 69 74 Resp 13 26 B/P (MAP) 106/64 (78) 117/67 (84) Pulse Ox 93 97 Physical Exam General Appearance: Unable to verbalize, shaking of the upper extremities Eyes: Pupils equal and round no pallor or injection. ENT, Mouth: Mucous membranes are moist. Respiratory: There are no retractions, lungs are clear to auscultation. Cardiovascular: Regular rate and rhythm. Gastrointestinal: Abdomen is soft and non tender, no masses, bowel sounds nor mal. Neurological: Rhythmic shaking of the upper extremities bilaterally, aphasic on examination Skin: Warm and dry, no rashes. Musculoskeletal: Neck is supple non tender. Extremities are nontender, nonswollen and have full range of motion. DIFFERENTIAL DIAGNOSIS: After history and physical exam differential diagnosis was considered for altered mental status including but not limited to hy poglycemia, infectious process, electrolyte abnormality, head injury and intoxicants. Medical Decision Making Data Points Result Diagram: 05/08/19 1305 05/08/19 1305 Laboratory Hematology Test 05/08/19 13:05 White Blood Count 6.2 k/uL (4.5-11.0) Red Blood Count 4.03 M/uL (4.17-5.56) L Hemoglobin 11.7 g/dL (12.0-16.0) L Hematocrit 35.3 % (34.0-47.0) Mean Corpuscular Volume 87.5 fL (80.0-96.0) Mean Corpuscular Hemoglobin 29.2 pg (26.0-33.0) Mean Corpuscular Hemoglobin Concent 33.3 g/dL (32.0-36.0) Red Cell Distribution Width 16.7 % (11.5-14.5) H Platelet Count 254 K/uL (150-450) Mean Platelet Volume 8.3 fL (7.2-11.1) Neutrophils (%) (Auto) 60.6 % (39.4-72.5) Lymphocytes (%) (Auto) 31.7 % (17.6-49.6) Monocytes (%) (Auto) 5.5 % (4.1-12.4) Eosinophils (%) (Auto) 1.5 % (0.4-6.7) Basophils (%) (Auto) 0.7 % (0.3-1.4) Nucleated RBC Relative Count (auto) 0.1 /100WBC Neutrophils # (Auto) 3.8 K/uL (2.0-7.4) Lymphocytes # (Auto) 2.0 K/uL (1.3-3.6) Monocytes # (Auto) 0.3 K/uL (0.3-1.0) Eosinophils # (Auto) 0.1 K/uL (0.0-0.5) Basophils # (Auto) 0.0 K/uL (0.0-0.1) Nucleated RBC Absolute Count (auto) 0.00 K/uL Chemistry Test 05/08/19 13:05 Sodium Level 138 mmol/L (137-145) Potassium Level 3.9 mmol/L (3.5-5.0) Chloride Level 106 mmol/L (98-107) Carbon Dioxide Level 19 mmol/L (22-31) Blood Urea Nitrogen 20 mg/dl (7-18) Creatinine 0.80 mg/dl (0.52-1.04) Glomerular Filtration Rate Calc > 60.0 Random Glucose 91 mg/dl (75-110) Calcium Level 9.3 mg/dl (8.4-10.2) Total Bilirubin 0.5 mg/dl (0.2-1.3) Aspartate Amino Transf (AST/SGOT) 33 U/L (0-35) Alanine Aminotransferase (ALT/SGPT) 41 U/L (0-56) Alkaline Phosphatase 95 U/L (0-126) Troponin I < 0.012 ng/ml Total Protein 7.7 g/dl (6.3-8.2) Albumin 4.6 g/dl (3.5-5.0) Coagulation Test 05/08/19 13:05 Prothrombin Time 28.1 seconds (12.0-14.4) Prothromb Time International Ratio 2.57 Activated Partial Thromboplast Time 56 seconds (23-35) EKG/Imaging EKG Interpretation FACILITY: [facility] [place] PATIENT NAME: HARSHAD RUANO : [id number] MR: [id number] V: [id number] EXAM DATE: ORDERING PHYSICIAN: JACQUE MACIAS TECHNOLOGIST: Test Reason : CVA Blood Pressure : / mmHG Vent. Rate : 074 BPM Atrial Rate : 074 BPM P-R Int : 218 ms QRS Dur : 086 ms QT Int : 402 ms P-R-T Axes : 049 096 034 degrees QTc Int : 446 ms Sinus rhythm with 1st degree AV block Otherwise normal ECG No previous ECGs available Referred By: Confirmed By: [id number] T: / Imaging FACILITY: [facility] [place] PATIENT NAME: Harshad Ruano : 09/26/1951 MR: [id number] V: [id number] EXAM DATE: ORDERING PHYSICIAN: JACQUE MACIAS TECHNOLOGIST: Location: [facility] [place] Patient: Harshad Ruano : 09/26/1951 Visit/Account:[id number] Date of Sevice: 05/08/2019 MR BRAIN/BRAIN STEM W/O CON History: CVA Patient name: Jennifer Kirk Date of 1950 COMPARISON STUDIES: CT scan earlier same day TECHNIQUE: Multi-planar, multi-sequence brain MRI was performed without IV contrast administration. FINDINGS: Sagittal midline structures: Negative Masses / midline shift: Negative Vessels: Negative Ventricles / sulci: Negative Extra-axial spaces: Negative Hemorrhage: Susceptibility artifact in the left frontal lobe is likely hemosiderin staining from prior old small microbleed. White matter: Old infarcts in the parietal occipital regions bilaterally greater on the right are noted with encephalomalacia defects. Scattered subcortical and periventricular white matter foci are likely on the basis of small vessel disease. Diffusion: No restricted diffusion Calvarium: Negative Paranasal sinuses / mastoid air cells: Negative Orbits: Negative Visualized upper neck: Negative IMPRESSION: 1. No evidence for acute ischemia, hemorrhage or mass. 2. Old bilateral parietal occipital infarcts greater on the right. 3. Susceptibility artifact in the left frontal lobe is likely hemosiderin staining potentially from an old small microbleed. 4. Periventricular and subcortical white matter foci are likely on the basis of small vessel disease. Report Dictated By: Damien Garcia MD at 05/08/2019 4:04 PM Report E-Signed By: Damien Garcia MD at 05/08/2019 4:08 PM WSN:[id number] ED Course/Re-evaluation ED Course Patient is a 69-year-old female here with complaints of aphasia, bilateral upper extremity shaking movements. Patient does have a history of CVA and hemorrhagic bleed. CT/CTA imaging showed no acute findings, stroke alert had been immediately called upon arrival. Patient was evaluated by tele stroke Dr. Flores who recommended MRI imaging, EEG. Patient was initially given 1 mg of Ativan, fluids and had resolution of symptoms. I provided the patient with a prescription for an EEG outpatient and she will contact her neurologist for further evaluation and care. MRI imaging showed no acute findings, please see [facility] report for further details. Patient was hemodynamically stable, alert and oriented at time of discharge. Strict return precautions provided. PCP follow-up in 3-5 days recommended. Decision to Disposition Date: May 08, 2019 Decision to Disposition Time: 17:28 Depart Departure Latest Vital Signs Vital Signs Date Time Temp Pulse Resp B/P (MAP) Pulse Ox O2 Delivery O2 Flow Rate FiO2 05/08/19 17:05 74 26 97 05/08/19 17:00 117/67 (84) 05/08/19 12:50 97.2 Room Air Impression: Primary Impression: Upper extremity dysfunction Additional Impressions: Aphasia Altered mental status Condition: Improved Disposition: HOME OR SELF-CARE Patient Instructions: Altered Mental Status (ED) Additional Instructions: It appears that today you did not have a stroke as demonstrated on CT and MRI imaging. The stroke specialist who evaluated you via tele-stroke Dr. Flores recommended an EEG which you were given were given a prescription for in the outpatient setting. Please return promptly if you develop headache, blurry vision, motor weakness, numbness, chest pain or shortness breath. Please follow- up with neurology. Please follow-up with your family provider in the next 24-48 hours for repeat evaluation. FACILITY: [facility] [place] PATIENT NAME: Harshad Ruano : 09/26/1951 MR: [id number] V: [id number] EXAM DATE: [id number] ORDERING PHYSICIAN: JACQUE MACIAS TECHNOLOGIST: Location: [facility] [place] Patient: Harshad Ruano : 09/26/1951 Visit/Account:[id number] Date of Sevice: 05/08/2019 MR BRAIN/BRAIN STEM W/O CON History: CVA Patient name: Jennifer Kirk Date of 1950 COMPARISON STUDIES: CT scan earlier same day TECHNIQUE: Multi-planar, multi-sequence brain MRI was performed without IV contrast administration. FINDINGS: Sagittal midline structures: Negative Masses / midline shift: Negative Vessels: Negative Ventricles / sulci: Negative Extra-axial spaces: Negative Hemorrhage: Susceptibility artifact in the left frontal lobe is likely hemosiderin staining from prior old small microbleed. White matter: Old infarcts in the parietal occipital regions bilaterally greater on the right are noted with encephalomalacia defects. Scattered subcortical and periventricular white matter foci are likely on the basis of small vessel disease. Diffusion: No restricted diffusion Calvarium: Negative Paranasal sinuses / mastoid air cells: Negative Orbits: Negative Visualized upper neck: Negative IMPRESSION: 1. No evidence for acute ischemia, hemorrhage or mass. 2. Old bilateral parietal occipital infarcts greater on the right. 3. Susceptibility artifact in the left frontal lobe is likely hemosiderin staining potentially from an old small microbleed. 4. Periventricular and subcortical white matter foci are likely on the basis of small vessel disease. Report Dictated By: Damien Garcia MD at 05/08/2019 4:04 PM Report E-Signed By: Damien Garcia MD at 05/08/2019 4:08 PM WSN:[id number] Problem Qualifiers JACQUE MACIAS DO May 08, 2019 12:54
[2019-05-08] MEDS ORDERED: LORazepam 2 MG/ML VIAL IVP ONE (12:55)
[2019-05-08 13:16] LABS: PLATELET COUNT, AUTOMATED 254 K/uL (150-450)
[2019-05-08] MEDS ORDERED: LORazepam 2 MG/ML VIAL ONE (13:22)
--- NOTE | 2019-05-08 13:26 | EKG ---
FACILITY: [facility] - [place] PATIENT NAME: CALIN RUANO : [id number] MR: [id number] V: [id number] EXAM DATE: ORDERING PHYSICIAN: JACQUE MACIAS TECHNOLOGIST: Test Reason : CVA Blood Pressure : / mmHG Vent. Rate : 074 BPM Atrial Rate : 074 BPM P-R Int : 218 ms QRS Dur : 086 ms QT Int : 402 ms P-R-T Axes : 049 096 034 degrees QTc Int : 446 ms Sinus rhythm with 1st degree AV block Otherwise normal ECG No previous ECGs available Confirmed by GONZALO LION ([id number]) on 05/08/2019 10:01:26 PM Referred By: Confirmed By:GONZALO LION
[2019-05-08] MEDS ORDERED: NS(*) 0.9% 50 ML BAG 50 ML ONE (13:37)
[2019-05-08] MEDS ORDERED: IOPAMIDOL 76% 100 ML INFUS BTL 100 ML ONE (13:37)
[2019-05-08 13:45] LABS: INR 2.57
[2019-05-08] MEDS ORDERED: ONDANSETRON 4 MG/2 ML VIAL IVP ONE (15:20)
--- NOTE | 2019-05-08 16:15 | RADIOLOGY IMAGING REPORT ---
FACILITY: [facility] PATIENT NAME: Harshad Elizabeth : 09/26/1951 MR: [id number] V: [id number] EXAM DATE: ORDERING PHYSICIAN: JACQUE MACIAS TECHNOLOGIST: Location: [facility] Patient: Harshad Elizabeth : 09/26/1951 Visit/Account:[id number] Date of Sevice: 05/08/2019 MR BRAIN/BRAIN STEM W/O CON History: CVA Patient name: Jennifer Kirk Date of 1950 COMPARISON STUDIES: CT scan earlier same day TECHNIQUE: Multi-planar, multi-sequence brain MRI was performed without IV contrast administration. FINDINGS: Sagittal midline structures: Negative Masses / midline shift: Negative Vessels: Negative Ventricles / sulci: Negative Extra-axial spaces: Negative Hemorrhage: Susceptibility artifact in the left frontal lobe is likely hemosiderin staining from prio r old small microbleed. White matter: Old infarcts in the parietal occipital regions bilaterally greater on the right are not ed with encephalomalacia defects. Scattered subcortical and periventricular white matter foci are lik albin on the basis of small vessel disease. Diffusion: No restricted diffusion Calvarium: Negative Paranasal sinuses / mastoid air cells: Negative Orbits: Negative Visualized upper neck: Negative IMPRESSION: 1. No evidence for acute ischemia, hemorrhage or mass. 2. Old bilateral parietal occipital infarcts greater on the right. 3. Susceptibility artifact in the left frontal lobe is likely hemosiderin staining potentially from a n old small microbleed. 4. Periventricular and subcortical white matter foci are likely on the basis of small vessel disease. Report Dictated By: Damien Garcia MD at 05/08/2019 4:04 PM Report E-Signed By: Damien Garcia MD at 05/08/2019 4:08 PM WSN:[id number]
[2019-05-08 17:00] VITALS: BP 117/67
[2019-05-10] MEDS ORDERED: MECL25TA27 PO (15:47)
== END 2019-05-08 17:51 | disposition home or self-care (01) ==
LOC: EDBD 12:44 → ER 12:58 → EDBD 12:58 → MERGE 12:58 → ER 17:51
DX: G25.89 Other specified extrapyramidal and movement disorders (principal); R47.01 Aphasia; R41.82 Altered mental status, unspecified; I44.0 Atrioventricular block, first degree
CPT/HCPCS: 70450; 70496; 70498; 70551; 84484; 85025; 85610; 85730; 93005; 96374; 96375; 99284; J2060; J2405; J7050; Q9967; 82040; 82247; 82310; 82374; 82435; 82565; 82947; 84075; 84132; 84155; 84295; 84450; 84460; 84520

== ENCOUNTER → 2019-05-08 | Outpatient (CLI) | payer MEDICARE ==
[2018-05-18 08:27] VITALS: BMI 32.4
[~2019-05-08] MED LIST changes: -IOPAMIDOL 76% 100 ML INFUS BTL 0 ML ONE; -IOPAMIDOL 76% 100 ML INFUS BTL 100 ML ONE; +MECL25TA27 PO; -NS(*) 0.9% 50 ML BAG 50 ML ONE
== END ==
LOC: AMB 12:14
PROVIDERS: ATTEND Nurse Practitioner
DX: I63.9 Cerebral infarction, unspecified (principal)
CPT/HCPCS: A0425; A0427

== ENCOUNTER → 2019-05-11 | Outpatient (CLI) | payer MEDICARE ==
[2018-05-18 08:27] VITALS: BMI 32.4
[~2019-05-11] MED LIST changes: +MECL25TA27 PO
== END ==
LOC: RESP 04:27
PROVIDERS: ATTEND Student in an Organized Health Care Education/Training Program
DX: R56.9 Unspecified convulsions (principal)
CPT/HCPCS: 95819